=== PATIENT | female | born 2000 | race Caucasian/White ===

== ENCOUNTER 2021-10-03 13:12 | Emergency (ER) | payer OTHER, SELFPAY ==
[2021-10-03 13:20] VITALS: BP 115/96; PULSE 104; RESP 12; TEMP 36.4; O2SAT 100
--- NOTE | 2021-10-03 13:30 | ED.URI ---
HPI - URI/Sore Throat General Chief Complaint: Upper Respiratory Infection Stated Complaint: Sore throat, cough Time Seen by Provider: 10/03/21 13:47 Source: patient and RN notes reviewed Mode of arrival: ambulatory Limitations: no limitations History of Present Illness HPI Narrative: 21-year-old female presents with concern for 1 week history of sore throat on and off. Reports 2 days ago she began having fever, chills, cough, headache. Reports she is fully vaccinated for Covid. Reports she has been taking DayQuil and NyQuil without relief. She denies shortness of breath, loss of taste or smell. MD elicited complaint: cough and nasal congestion Related Data Allergies Allergy/AdvReac Type Severity Reaction Status Date / Time No Known Allergies Allergy Verified 08/01/21 13:25 Review of Systems Review of Systems: CONSTITUTIONAL: Reports malaise, chills, sweats, or fever. EYES: Denies visual changes, redness, or discharge. ENT: Reports rhinorrhea, congestion, sore throat. Denies sinus pain, otalgia CARDIOVASCULAR: Denies chest pain, palpitations, or edema. RESPIRATORY: Reports cough. Denies dyspnea. GASTROINTESTINAL: Denies abdominal pain, nausea, vomiting, diarrhea SKIN: Denies rash or itching. MUSCULOSKELETAL: Reports myalgia. NEUROLOGIC: Den reports headache. All systems reviewed & are unremarkable except as noted in HPI and below PMFSH Past Medical History Medical History No active medical problems Surgical History Surgical History [place] teeth removed Family History Family History Mother Depression Father Family history of type 2 diabetes mellitus Hypertension Grandparent History of blood clots Breast cancer Cerebrovascular accident Social History Social History Smoking status: Never smoker Second hand tobacco smoke exposure: No Alcohol intake: current Drinks per week: 5 Substance use: never Comments At time of signature, agree with nursing past medical, surgical, social and family history. There is no relevant family history pertinent to the presenting complaint Exam Narrative: GENERAL: Nontoxic-appearing, well-nourished, and in no acute distress. HEAD: Normocephalic EYES: PERRLA, conjunctivae clear ENT: Nares clear, clear discharge. Mucous membranes moist. TM pearly lowery with sharp light reflex bilaterally; no tragal tenderness. Oropharynx not erythematous without lesions. Tonsils not enlarged and without exudate, no drooling, no hoarseness, no trismus, uvula midline. NECK: Supple. No lymphadenopathy CHEST: Clear to auscultation, breath sounds equal. No wheezing, rhonchi, rales, or stridor. No respiratory distress, speaks in full sentences. HEART: Regular rate and rhythm. No murmur heard. SKIN: Warm, dry, no rash. NEURO: Alert and oriented x3. PSYCH: Normal mood and affect Course Course Emergency Course: Patient is aware of diagnosis, understands and agrees to treatment plan. Anticipatory guidance given. Patient agrees to follow-up as directed and is aware of reasons to seek care at the emergency department. Portions of this record may have been created with voice recognition software Level of Care: Express Care Visit Vital Signs Vital signs: Vital Signs Temperature 97.6 F 10/03/21 13:20 Pulse Rate 104 H 10/03/21 13:20 Respiratory Rate 12 10/03/21 13:20 Blood Pressure 115/96 H 10/03/21 13:20 Pulse Oximetry 100 10/03/21 13:20 Temperature 97.6 F 10/03/21 13:20 Pulse Rate 104 H 10/03/21 13:20 Respiratory Rate 12 10/03/21 13:20 Blood Pressure 115/96 H 10/03/21 13:20 Pulse Oximetry 100 10/03/21 13:20 Reviewed. MDM - URI/Sore Throat MDM Narrative Medical decision making narrative: Differential diagn
== END 2021-10-03 13:58 | disposition home or self-care (01) ==
PROVIDERS: Emergency Provider Nurse Practitioner; PCP Family Medicine
DX: U07.1 COVID-19 (principal)
CPT/HCPCS: 87426; 99213; C9803; G0463

== ENCOUNTER 2024-10-24 08:24 | Emergency (ER) | payer OTHER, SELFPAY ==
--- NOTE | ~2024-10-24 | CT_ITS ---
EXAMINATION: CT abdomen pelvis w con DATE: 10/24/2024 10:14 INDICATION: Right-sided abdominal pain TECHNIQUE: Computed tomography (CT) of the abdomen and pelvis was performed with 100 mL Omnipaque-350 intravenous contrast. Automated exposure control and iterative reconstruction technique were employe d. The dose-length product was 276.38 mGy-cm. COMPARISON: None FINDINGS: Lung bases are clear. Heart size is normal. No pericardial or pleural effusion. Liver, gallbladder, s pleen, pancreas, bilateral adrenal glands and kidneys are normal. Bowels are normal with no obstructi on. The appendix is not visualized. No pericecal inflammatory change to suggest acute appendicitis. B ladder, anteverted uterus and bilateral adnexa are unremarkable. Minimal amount of likely physiologic free fluid in the cul-de-sac. No abscess or free intraperineal gas. No pathologically enlarged abdom inal or pelvic lymphadenopathy. Bones are unremarkable. IMPRESSION: 1. No acute intra-abdominal/pelvic process. Reviewed, dictated and finalized at location A. EXAMINER
[2024-10-24 08:25] VITALS: BP 118/72; PULSE 82; RESP 16; TEMP 36.4; O2SAT 100
--- OUTSIDE RECORDS SUMMARY | 2024-10-24 08:25 | XMS_ITS | Clinical Summary ---
Author Organization [facility] [employer] Address [facility] [facility] [place] [address] Care Team Providers Care Nursing Techn Name Role Phone Unavailable Primary Care Provider Unavailabl e Source Comments [facility] [employer],non-owned Affiliates and Associated Physician Practices is amultiple site organization consisting of ambulatory clinics and hospital sitesin [place], [place], [place] and [place]. This disclosure is being madepursuant to the Care Everywhere program and may not contain all information available regarding this patient. Last updated 18.[facility] [employer] Immunizations Name Administration Dates Next Due TDAP (7yrs+) 02/03/2021 Social History Tobacco Use Types Packs/Day Years Used Date Smoking Tobacco: Never Assessed Sex and Gender Information Value Date Recorded Sex Assigned at Not on file Gender Identity Not on file Sexual Orientation Not on file Plan of Treatment Health Maintenance Due Date Last Done Comments PAP SMEAR 2000 HIV SCREENING 2013 HPV VACCINE (1 - 3-dose series) 2013 CHLAMYDIA/GONORRHEA SCREENING 2014 HEPATITIS C SCREENING 09/01/2016 HEPATITIS B VACCINE (1 of 3 - 19+ 3-dose series) 2017 COVID-19 VACCINE ( - 2023-2 5 season) 2024 11/22/2020, 10/25/2020 INFLUENZA VACCINE (#1) 2024 DEPRESSION SCREENING 09/30/2024 DTAP/TDAP/TD VACCINES (2 - T d or Tdap) 02/03/2031 02/03/2021 ZOSTER VACCINE (1 of 2) 2048 HIB VACCINE Aged Out No longer eligi ble based on patient's age to complete this topic MENINGOCOCCAL (Group B) VACCINE Aged Out No longer eligible b ased on patient's age to complete this topic MENINGOCOCCAL VACCINE Aged Out No hardy meg eligible based on patient's age to complete this topic PNEUMOCOCCAL VACCINE Aged Out No long er eligible based on patient's age to complete this topic
--- OUTSIDE RECORDS SUMMARY | 2024-10-24 08:25 | XMS_ITS ---
Care Plan - [facility] Created on: October 24, 2024 ZEINAB DIAZ : 2000 Sex: Female Author Organization [facility] Address [address] [place] [address] Phone Care Team Providers Care College Sports Coach Name Role Phone Unavailable Unavailable Unavailable
--- OUTSIDE RECORDS SUMMARY | 2024-10-24 08:25 | XMS_ITS | Referral Summary ---
Author Organization [facility] Address [facility] [place] [address] Care Team Providers Care Mail Carriers Supervisor Name Role Phone Unavailable Primary Care Provider Unavailabl e Source Comments [facility],non-owned Affiliates and Associated Physician Practices is amultiple site organization consisting of ambulatory clinics and hospital sitesin [place], [place], [place] and [place]. This disclosure is being madepursuant to the Care Everywhere program and may not contain all information available regarding this patient. Last updated 18.[facility] [employer] Immunizations Name Administration Dates Next Due TDAP (7yrs+) 02/03/2021 Social History Tobacco Use Types Packs/Day Years Used Date Smoking Tobacco: Never Assessed Sex and Gender Information Value Date Recorded Sex Assigned at Not on file Gender Identity Not on file Sexual Orientation Not on file Plan of Treatment Not on file
--- OUTSIDE RECORDS SUMMARY | 2024-10-24 08:25 | XMS_ITS | Clinical Summary ---
Author Organization [facility] Address [address] [place] [address] Phone Care Team Providers Care Saw Man Name Role Phone Unavailable Unavailable Unavailable Reason for Visit and Chief Complaint gynecologic annual exam - The Chief Complaint is: Annual Problems Includes: Problems addressed during this encounter and other active Problems All Visits Onset Date Resolved Date Provider Condition S tatus Dysmenorrhea 12/22/2015 OLIVIA OSORIO [facility]- A ctive Last Documented On 6 2:17PM ; [facility] Plan of Treatment - Clinical summary provided to patient - Last Documented On 12/31/2016 2:33PM ; [facility] Instructions to patient Instructions for patient : B reast Self Exam discussed Last Documented On 7 2:18PM ; [facility] Gardasil information given a nd series encouraged Series completed! Last Documented On 7 2:19PM ; [facility] Safe sex counseling Last Documented On 7 2:19PM ; [facility] Education and Decision Aids were provided during visit for: Patient Education: Daily bryant cium and vitamin D Last Documented On 7 2:18PM ; [facility] Patient Education: weight be aring exercise Last Documented On 7 2:18PM ; [facility] Assessments Includes: Assessments from this encounter Findings - NORMAL FEMALE EXAM - Last Documented On 12/31/2016 2:33PM ; [facility] Instructions Includes: Instructions from this encounter Instructions to patient Instructions for patient : B reast Self Exam discussed Last Documented On 7 2:18PM ; [facility] Gardasil information given a nd series encouraged Series completed! Last Documented On 7 2:19PM ; [facility] Safe sex counseling Last Documented On 7 2:19PM ; [facility] Education and Decision Aids were provided during visit for: Patient Education: Daily bryant cium and vitamin D Last Documented On 7 2:18PM ; [facility] Patient Education: weight be aring exercise Last Documented On 7 2:18PM ; [facility] Medical Equipment - Implanted Devices Includes: Current Devices No Medical Equipment Recorded Medications Includes: Medications discussed during this encounter and other current Medications New / Renewed during this visit OLIVIA COVINGTON on 12/31/2016 Aviane 0.1-20MG-MCG Oral Tablet Provider: OLIVIA Boone 90 day supply: 90 tablet, 3 refills Diagnosis: Dysmenorrhea, unspecified One tablet daily Pharmacy: [facility] [address], [address] - Last Documented On 8 6:58AM By OLIVIA COVINGTON ; [facility] Current Medications (continue as prescribed) Aviane 0.1-20MG-MCG Oral Tablet 02/04/2019 Provider: OLIVIA COVINGTON Diagnosis: One tablet daily Last Documented On 9 9:12AM By OLIVIA COVINGTON ; [facility] Medications Administered Includes: Administered Medications from this encounter No Administered Medications Recorded Vital Signs Includes: Vital Signs from this encounter Vital Name 12/31/2016 02:23P Blood Pressure Sitting L 100/60 BP Cuff Size Regular Height (in) 67 Weight (lb) 114 Body Mass Index (kg/m2) 17.9 BMI Percentile (percentile) 7 Body Surface Area (m2) 1.6 Last Documented: On 12/31/2016 2:25PM ; [facility] Results Includes: Results discussed during this encounter No Results Recorded For Specified Dates History of Present Illness Includes: History of Present Illness from this encounter NEWTON DIAZ is an 16 year old female. - Medication list reviewed - PRIMARY CARE PROVIDER : Dr Clay Social History Description Last Updated Non-smoker 12/31/2016 Last Documented On 7 2:33PM ; [facility] Not using alcohol 12/31/2016 Last Documented On 7 2:33PM ; [facility] Not using drugs 12/31/2016 Last Documented On 7 2:33PM ; [facility] Social history unchanged 12/31/2016 Last Documented On 7 2:33PM ; [facility] Smoking status : Never smoker 12/31/2016 Last Documented On 7 2:33PM ; [facility] Procedures and Surgical History Includes: Procedures from this encounter Procedures Code Diagnosis Performing Provider Service L ocation Service Date low fat diet Last Documented On 7 2:19PM ; [facility] Medical History Includes: Medical History addressed during this encounter Description Last Updated No recent change in medical history 11/2016 Last Documented On 7 2:33PM ; [facility] History of Gardasil 12/31/2016 Last Documented On 7 2:33PM ; [facility] LMP: 12/29/2016 12/31/2016 Last Documented On 7 2:33PM ; [facility] Not sexually active 12/31/2016 Last Documented On 7 2:33PM ; [facility] Contraception: avaine 12/31/2016 Last Documented On 7 2:33PM ; [facility] Family History Includes: Family History addressed during this encounter Description Last Updated Family history unchanged 12/31/2016 Last Documented On 7 2:33PM ; [facility] Family medical history was unknown 12/31 Last Documented On 7 2:33PM ; [facility] Review of Systems Includes: Review of Systems from this encounter Gastrointestinal: No pelvic pain. Genitourinary: No menorrhagia. No dysmenorrhea and no bleeding between periods. No vaginal discharge. Mental Status Includes: Mental Status from this encounter No Mental Status Recorded Functional Status Includes: Functional Status from this encounter No Functional Status Recorded Physical Exam Includes: Physical Exam from this encounter Allergies Includes: Active Allergies No Known Allergies Encounters Encounter Provider Location Date Check-In Time Check-Out Time Diagnosis [employer]ANITE [employer]TER[employer] INSTALLER EXAM [facility] [employer] 7 2:18PM 2:33PM Normal Female Exam Clinical Notes Includes: Clinical Notes from this encounter No Clinical Notes Recorded
--- OUTSIDE RECORDS SUMMARY | 2024-10-24 08:25 | XMS_ITS | Referral Summary ---
Author Organization [facility] [place] [address] Address [address] [place] [address] Care Team Providers Care Asphalt Mixing Machine Operator Name Role Phone Raza Aggarwal MD Primary Care Provider [phone] [phone] Encounters Date Type Department Care Team Description 10/16/2024 Telephone [facility] [address] [place] [address] Heavenly Carbone LPN 10/09/2024 11:01 AM DIRECTOR ONCOLOGY - 10/09/2024 11:59 PM DIRECTOR ONCOLOGY Hospital Encounter [facility] [address] [place] [phone] Screening for malignant neoplasm of cervix Discharge Disposition: Discharge to home or self care 10/09/2024 10:30 AM DIRECTOR ONCOLOGY Office Visit [facility] [address] [place] [address] Flor Stark DO Encounter for annual routine gynecological examination (Primary Dx); Screening for malignant neoplasm of cervix; Encounter for surveillance of contraceptive pills 09/01/2024 8:15 AM DIRECTOR ONCOLOGY Office Visit [facility] Primary Care at [address] [address] Raza Aggarwal MD Annual physical exam (Primary Dx) from Last 3 Months Allergies No known active allergies Medications levonorgestreL- ethinyl estrad (Vienva) 0.1-20 mg-mcg per tablet Take 1 tablet by mouth daily 28 tablet 12 5 Active levonorgestreL- ethinyl estrad (Vienva) 0.1-20 mg-mcg per tablet Take 1 tablet by mouth daily 28 tablet 12 4 10/09/19 25 Discontinu ed(Reorder ) Active Problems Problem Noted Date Diagnosed Date Annual physical exam 09/03/2023 Immunizations Name Administration Dates Next Due DTaP 09/21/2002, 0,03/10/1999,12/30,1998 Hep B, Adolescent or Pediatric 1999,1998,1998 Hib (HbOC) 05/07/2000, 9,1998,11/04 IPV 09/21/2002, 0,1998,11/04 Influenza, Quadrivalent, Spl it, Preservative Free, Intramuscular 06/29/2022 Influenza, Trivalent, IM (MDV) 07/05/2021 Influenza, Unspecified 07/09/2024,07/09/2023 MMR 05/27/2004,05/07/2000 Meningococcal MCV4P (Menactra) 04/26/2016 PPD TEST 04/25/2022 Tdap 02/03/2021,05/08/2013 Varicella 05/15/2010,02/05/2000 Social History Tobacco Use Types Packs/Day Years Used Date Smoking Tobacco: Never Cigarettes Smokeless Tobacco: Never Tobacco Cessation:Counseling Given: Not Answered PHQ-2 Answer Date Recorded PHQ-2 Total Score (If total score is 3 or more points, staff should administer the PHQ-9) 0 09/01/2024 Comments No Sex and Gender Information Value Date Recorded Sex Assigned at Not on file Legal Sex Female 12:37 PM DIRECTOR ONCOLOGY Gender Identity Not on file Sexual Orientation Not on file Occupation Industry Job Start Date Job End Date Not on file Not on file Not on file Not on file Last Filed Vital Signs Vital Sign Reading Time Taken Comments Blood Pressure 116/72 10/09/2024 10:14 AM DIRECTOR ONCOLOGY Pulse 88 09/01/2024 8:20 AM DIRECTOR ONCOLOGY Temperature 36.7 ??C (98.1 ??F) 09/01/2024 8:20 AM CS T Respiratory Rate 16 05/24/2022 10:21 AM CDT Oxygen Saturation 98% 09/01/2024 8:20 AM DIRECTOR ONCOLOGY Inhaled Oxygen Concentration - - Weight 70.8 kg (156 lb) 10/09/2024 10:14 AM DIRECTOR ONCOLOGY Height 167.6 cm (5' 6 ) 10/09/2024 10:14 AM DIRECTOR ONCOLOGY Body Mass Index 25.18 10/09/2024 10:14 AM DIRECTOR ONCOLOGY Plan of Treatment Not on file Procedures Procedure Name Priority Date/Time Associated Diagnosis Comments HIGH RISK HPV DNA DETECTION WITH GENOTYPING Routine 10/09/2024 11:33 AM DIRECTOR ONCOLOGY THINPREP PROCESSING (MOLECULAR COMPONENT) Routine 10/09/2024 11:01 AM DIRECTOR ONCOLOGY Screening for malignant neoplasm of cervix PAP WITH REFLEX TO HIGH RISK HPV Routine 10/09/2024 10:27 AM DIRECTOR ONCOLOGY Screening for malignant neoplasm of cervix from Last 3 Months Results * High Risk HPV DNA Detection with Genotyping (Molecular component) (10/09/2024 11:33 AM DIRECTOR ONCOLOGY) HPV HR 16 Not Detected Not Detected [facility] Comment:Testing performed by : [facility], [address] [place]., [address] HPV HR 18 Not Detected Not Detected [facility] Comment:Testing performed by : [facility], [address] [place]., [address] HPV HR Non 16/18 Not Detected Not Detected [facility] Comment: Interpretive Data Nucleic acid amplification for detection of high-risk Human Papilloma virus (HPV) is performed by the Carlos Eduardo Keyanna 6800 HPV test. ??This assay specifically detects HPV-16 and HPV-18 genotypes. ??The following HPV genotypes are detected as high-risk HPV: ?? HPV-31, 33, 35, ,39, 45, 51, 52, 56, 58, 59, 66, and 68. ??This assay has been approved by the United States Food and Drug Administration for detection of HPV in cervical specimens collected by a physician using an endocervical brush/spatula or cervical broom and placed in the ThinPrep Pap Test PreservCyt collection containers. ??The performance characteristics of this test have been verified by the [facility] laboratory. Correlate with separately reported cytology results, as applicable. Interpretive data last revised 23 Testing performed by: [facility], [address] [place]., [address] Endocervical 10/09/2024 11:3 3 AM DIRECTOR ONCOLOGY 10/16/2024 4:13 AM DIRECTOR ONCOLOGY Flor Stark DO LAB BODY FLUIDS AND STO OLS ORDERABLES Final Result [facility] [address] [employer] [place] [address] BJ * ThinPrep processing (Molecular component) (10/09/2024 11:01 AM DIRECTOR ONCOLOGY) ThinPrep processing (Molecular component) Specimen received for processing. [facility] Comment:Testing performed by : [facility], [address] [place]., [address] Endocervical 10/09/2024 11:0 1 AM DIRECTOR ONCOLOGY 10/12/2024 12:16 PM DIRECTOR ONCOLOGY Flor Stark DO LAB BODY FLUIDS AND STO OLS ORDERABLES Final Result [facility] [address] [employer] [place] [address] BJ * (ABNORMAL) Pap with reflex to High Risk HPV and Genotyping (Cytology Component) (10/09/2024 10:27 AM DIRECTOR ONCOLOGY) Thin prep (Pap test) 10/09/2024 10:27 AM DIRECTOR ONCOLOGY 10/09/2024 10:27 AM DIRECTOR ONCOLOGY Narrative PATHOLOGY CH - 10/14/2024 3:39 PM DIRECTOR ONCOLOGY [facility] Department of Pathology [address] [place] [address] Final Report with Addendum Note to Patients: This report may contain a detailed description of human tissue sent by a health care provider to the laboratory for pathologic evaluation. The content of this report is essential for diagnosis and may provide important critical findings. This information may be unfamiliar to patients to review without a medical professional present. It is advised that the patient review this report in the presence of a health care provider who can answer questions and explain the details. Patient Name: ??LINSEY DIAZ Address: ??[address] [place] [address] [place], ?? [place], [place] ??[address] Gender: ??F : ??2000 (Age: 24) Service: ?? Location: ?? Hospital #: ??[id number] Patient Type: ??[facility] SPECIMEN Taken: ??10/09/2024 Received: ??10/09/2024 Accessioned:: ??10/12/2024 Reported: ??10/14/2024 Physician(s): Luis Santos D.O. Diagnosis: SOURCE OF SPECIMEN ? Imaged Thinprep Pap Test w/ Reflex HPV - Field Supervisor Cytologic Material: STATEMENT OF ADEQUACY ?- Specimen satisfactory for interpretation; endocervical/transformation zone component absent or ?insufficient ? GENERAL CATEGORIZATION: ?- Epithelial cell abnormality ? INTERPRETATION: ?- Atypical squamous cells of undetermined significance; ?- High risk HPV test pending -- addendum to follow ? ALLIE Trejo(ASCP)Ayanna Wolfe M.D. Report Electronically Reviewed and Signed Out By ??Ayanna Haji M.D. ??10/14/2024 15:39:13Addenda: HPV Test Interpretation (Normal-Negative for High Risk HPV) HPV HR 16- Not detected HPV HR 18-Not detected HPV HR non 16/18- Not detected Interpretive Data Nucleic acid amplification for detection of high-risk Human Papilloma virus (HPV) is performed by the Carlos Eduardo Keyanna 6800 HPV test. This assay specifically detects HPV- 16 and HPV-18 genotypes. The following HPV genotypes are detected as high-risk HPV: HPV-31, 33, 35, 39, 45, 51, 52, 56, 58, 59, 66, and 68. This assay has been approved by the [place] Food and Drug Administration for detection of HPV in cervical specimens collected by a physician using an endocervical brush/spatula or cervical broom and placed in the ThinPrep Pap Test PreservCyt collection containers. The performance characteristics of this test have been verified by the [facility] laboratory. Correlate with reported cytology results, as applicable. Interpretive data last revised 23 ALLIE Trejo(ASCP)Report Electronically Reviewed and Signed Out By ??ALLIE Trejo(ASCP) ??10/16/2024 10:57:17 ?? Specimen(s) Received: A: Imaged Thinprep Pap Test w/ Reflex HPV - Field Supervisor Cytologic Material Clinical History: Last Menstrual Period: 09/13/24 The Pap test is a screening test used to aid in the detection of cervical cancer and its precursors. ??It should not be the sole means by which malignant and premalignant lesions are diagnosed. ??Both false negative and false positive results may occur. ?? It also has poor sensitivity for the detection of endometrial lesions and should not be used to evaluate suspected endometrial abnormalities. ??For these reasons it is most important to obtain Pap tests at regular intervals. The performance characteristics of some immunohistochemical stains, fluorescence in-situ hybridization tests and immunophenotyping by flow cytometry cited in this report (if any) were determined by the Surgical Pathology Department at [facility] as part of an ongoing dairy quality assurance officer program and in compliance with federally mandated regulations drawn from the Clinical Laboratory Improvement Act of 1988 (CLIA '88). ??Some of these tests rely on the use of analyte specific reagents and are subject to specific labeling requirements by the US Food and Drug Administration. ??Such diagnostic tests may only be performed in a facility that is certified by the Department of Health and Human Services as a high complexity laboratory under CLIA '88. The FDA has determined that such clearance or approval is not necessary. ??This test is used for clinical purposes. ??It should not be regarded as investigational or for research. ??Nevertheless, federal rules concerning the medical use of analyte specific reagents require that the following disclaimer be attached to the report: This test was developed and its performance characteristics determined by the Surgical Pathology Department [facility]. ??It has not been cleared or approved by the U. S. Food and Drug Administration. Flor Stark DO LAB CYTOLOGY ORDERABLES Final Result PATHOLOGY [address] [place] [address] from Last 3 Months Insurance [facility] * Guarantor: LINSEY DIAZ Account Type Relation to Patient Date of Phone Billing Address Personal/Family 2000 [address] [place] [address] Care Teams Asphalt Mixing Machine Operator Relationship Specialty Start Date End Date [place] [address] PCP - General Family Medicine 07/31/21
--- OUTSIDE RECORDS SUMMARY | 2024-10-24 08:25 | XMS_ITS | Patient Health Summary ---
Author Organization [facility] Address [address] [place] [address] Care Team Providers Care Cna Name Role Phone Unavailable Primary Care Provider Unavailabl e Note from [facility],non-owned Affiliates and Associated Physician Practices is amultiple site organization consisting of ambulatory clinics and hospital sitesin [place], [place], [place] and [place]. This disclosure is being madepursuant to the Care Everywhere program and may not contain all information available regarding this patient. Last updated 18.[facility] Immunizations * TDAP (7yrs+)(Given 02/03/2021) Social History Tobacco Use Types Packs/Day Years Used Date Smoking Tobacco: Never Assessed Sex and Gender Information Value Date Recorded Sex Assigned at Not on file Gender Identity Not on file Sexual Orientation Not on file
--- OUTSIDE RECORDS SUMMARY | 2024-10-24 08:25 | XMS_ITS | Clinical Summary ---
Author Organization [facility] [place] [address] Address [facility] [place] [address] Care Team Providers Care Getter Operator Name Role Phone Raza Aggarwal MD Primary Care Provider [phone] [phone] Allergies No known active allergies Medications levonorgestreL- ethinyl estrad (Vienva) 0.1-20 mg-mcg per tablet Take 1 tablet by mouth daily 28 tablet 12 5 Active levonorgestreL- ethinyl estrad (Vienva) 0.1-20 mg-mcg per tablet Take 1 tablet by mouth daily 28 tablet 12 4 10/09/19 25 Discontinu ed(Reorder ) Active Problems Problem Noted Date Diagnosed Date Annual physical exam 09/03/2023 Encounters Date Type Department Care Team Description 10/16/2024 Telephone [facility] [address] [place] [phone] Heavenly Carbone LPN 10/09/2024 11:01 AM CONSULTING SENIOR PRACTICE DIRECTOR - 10/09/2024 11:59 PM CONSULTING SENIOR PRACTICE DIRECTOR Hospital Encounter [facility] [address] [place] [address] Screening for malignant neoplasm of cervix Discharge Disposition: Discharge to home or self care 10/09/2024 10:30 AM CONSULTING SENIOR PRACTICE DIRECTOR Office Visit [facility] [address] [place] [phone] Flor Stark, Encounter for annual routine gynecological examination (Primary Dx); Screening for malignant neoplasm of cervix; Encounter for surveillance of contraceptive pills 09/01/2024 8:15 AM CONSULTING SENIOR PRACTICE DIRECTOR Office Visit [facility] Primary Care at [address] [address] Raza Aggarwal MD Annual physical exam (Primary Dx) from Last 3 Months Immunizations Name Administration Dates Next Due DTaP 09/21/2002, 0,03/10/1999,12/30,1998 Hep B, Adolescent or Pediatric 1999,1998,1998 Hib (HbOC) 05/07/2000, 9,1998,11/04 IPV 09/21/2002, 0,1998,11/04 Influenza, Quadrivalent, Spl it, Preservative Free, Intramuscular 06/29/2022 Influenza, Trivalent, IM (MDV) 07/05/2021 Influenza, Unspecified 07/09/2024,07/09/2023 MMR 05/27/2004,05/07/2000 Meningococcal MCV4P (Menactra) 04/26/2016 PPD TEST 04/25/2022 Tdap 02/03/2021,05/08/2013 Varicella 05/15/2010,02/05/2000 Surgical History Surgery Date Site/Laterality Comments NO PAST SURGERIES Medical History Medical History Date Comments No pertinent past medical history Anxiety Family History Medical History Relation Name Comments Diabetes Father Rubens Diaz Relation Name Status Comments Father Rubens Diaz Alive Mother Alive Social History Tobacco Use Types Packs/Day Years Used Date Smoking Tobacco: Never Cigarettes Smokeless Tobacco: Never Tobacco Cessation:Counseling Given: Not Answered PHQ-2 Answer Date Recorded PHQ-2 Total Score (If total score is 3 or more points, staff should administer the PHQ-9) 0 09/01/2024 Comments No Sex and Gender Information Value Date Recorded Sex Assigned at Not on file Legal Sex Female 12:37 PM CONSULTING SENIOR PRACTICE DIRECTOR Gender Identity Not on file Sexual Orientation Not on file Occupation Industry Job Start Date Job End Date Not on file Not on file Not on file Not on file Obstetrics History Para Term AB IAB SAB Ectopic Multiple Livin g Live Births 0 0 0 0 0 0 0 0 0 0 0 Last Filed Vital Signs Vital Sign Reading Time Taken Comments Blood Pressure 116/72 10/09/2024 10:14 AM CONSULTING SENIOR PRACTICE DIRECTOR Pulse 88 09/01/2024 8:20 AM CONSULTING SENIOR PRACTICE DIRECTOR Temperature 36.7 ??C (98.1 ??F) 09/01/2024 8:20 AM CS T Respiratory Rate 16 05/24/2022 10:21 AM CDT Oxygen Saturation 98% 09/01/2024 8:20 AM CONSULTING SENIOR PRACTICE DIRECTOR Inhaled Oxygen Concentration - - Weight 70.8 kg (156 lb) 10/09/2024 10:14 AM CONSULTING SENIOR PRACTICE DIRECTOR Height 167.6 cm (5' 6 ) 10/09/2024 10:14 AM CONSULTING SENIOR PRACTICE DIRECTOR Body Mass Index 25.18 10/09/2024 10:14 AM CONSULTING SENIOR PRACTICE DIRECTOR Plan of Treatment Health Maintenance Due Date Last Done Comments Hepatitis C Screening 2000 HPV Vaccines (1 - 3-dose series) 2013 Covid-19 Vaccine ( season) 2024 11/22/2020, 10/25/2020 Depression Screening 09/01/2025 09/01/2024, 09/03/2023, 08/28/2022, Additional history exists Cervical Cancer Screening 10/09/20252024, 10/09/2024, 10/03/2023, Additional history exists Regular Well Visit/Exam 18-64 10/09/2025 10/09/2024, 09/01/2024, 10/03/2023, Additional history exists DTaP/Tdap/Td Vaccine (8 - Td or Tdap) 02/03/2031 02/03/2021, 05/08/2013, 09/21/2002, Additional history exists Varicella Vaccines Completed 05/15/2010, 02/05/2000 Influenza Vaccine Completed 07/09/2024, , 06/29/2022, Additional history exists Pneumococcal vaccine <65 Aged Out No longer eligible based on patient's age to complete this topic Procedures Procedure Name Priority Date/Time Associated Diagnosis Comments HIGH RISK HPV DNA DETECTION WITH GENOTYPING Routine 10/09/2024 11:33 AM CONSULTING SENIOR PRACTICE DIRECTOR THINPREP PROCESSING (MOLECULAR COMPONENT) Routine 10/09/2024 11:01 AM CONSULTING SENIOR PRACTICE DIRECTOR Screening for malignant neoplasm of cervix PAP WITH REFLEX TO HIGH RISK HPV Routine 10/09/2024 10:27 AM CONSULTING SENIOR PRACTICE DIRECTOR Screening for malignant neoplasm of cervix from Last 3 Months Results * High Risk HPV DNA Detection with Genotyping (Molecular component) (10/09/2024 11:33 AM CONSULTING SENIOR PRACTICE DIRECTOR) HPV HR 16 Not Detected Not Detected [facility] Comment:Testing performed by : [facility], [address] [place]., [address] HPV HR 18 Not Detected Not Detected [facility] Comment:Testing performed by : [facility], [address] [place]., [address] HPV HR Non 16/18 Not Detected Not [...] this test have been verified by the [facility] Infectious Disease laboratory. Correlate with separately reported cytology results, as applicable. Interpretive data last revised 23 Testing performed by: [facility], [address] [place]., [address] Endocervical 10/09/2024 11:3 3 AM CONSULTING SENIOR PRACTICE DIRECTOR 10/16/2024 4:13 AM CONSULTING SENIOR PRACTICE DIRECTOR Flor Stark DO LAB BODY FLUIDS AND STO OLS ORDERABLES Final Result Performing Organization Address City/State/[facility] Co de Phone Number [facility] ZAMAN [phone] Department [place] [address] BJ * ThinPrep processing (Molecular component) (10/09/2024 11:01 AM CONSULTING SENIOR PRACTICE DIRECTOR) ThinPrep processing (Molecular component) Specimen received for processing. [facility] Comment:Testing performed by : [facility], [address] [place]., [address] Endocervical 10/09/2024 11:0 1 AM CONSULTING SENIOR PRACTICE DIRECTOR 10/12/2024 12:16 PM CONSULTING SENIOR PRACTICE DIRECTOR Flor Stark DO LAB BODY FLUIDS AND STO OLS ORDERABLES Final Result Performing Organization Address [facility] Co de Phone Number [facility] ZAMAN [address] Department [place] [address] BJ * (ABNORMAL) Pap with reflex to High Risk HPV and Genotyping (Cytology Component) (10/09/2024 10:27 AM CONSULTING SENIOR PRACTICE DIRECTOR) Thin prep (Pap test) 10/09/2024 10:27 AM CONSULTING SENIOR PRACTICE DIRECTOR 10/09/2024 10:27 AM CONSULTING SENIOR PRACTICE DIRECTOR Narrative PATHOLOGY - 10/14/2024 3:39 PM CONSULTING SENIOR PRACTICE DIRECTOR [facility] Department of Pathology [address] [place] [id number] Final Report with Addendum Note to Patients: [...] the details. Patient Name: ??LINSEY DIAZ Address: ??[address] [place] [address], ?? [place], [place] ??[address] Gender: ??F : ??2000 (Age: 24) Service: ?? Location: ?? Hospital #: ??[id number] Patient Type: ??[facility] SPECIMEN Taken: ??10/09/2024 Received: ??10/09/2024 Accessioned:: ??10/12/2024 Reported: ??10/14/2024 Physician(s): Luis Santos D.O. Diagnosis: SOURCE OF SPECIMEN ? Imaged Thinprep Pap Test w/ Reflex HPV - Clinical Immunologist Cytologic Material: STATEMENT OF ADEQUACY ?- Specimen [...] this test have been verified by the [facility] Infectious Disease laboratory. Correlate with reported cytology results, as applicable. Interpretive data last revised 23 ALLIE Trejo(ASCP)Report Electronically Reviewed and Signed Out By ??ALLIE Trejo(ASCP) ??10/16/2024 10:57:17 ?? Specimen(s) Received: A: Imaged Thinprep Pap Test w/ Reflex HPV - Clinical Immunologist Cytologic Material Clinical History: Last Menstrual Period: [...] determined by the Surgical Pathology Department at [facility] as part of an ongoing quality internship program and in compliance with federally mandated [...] characteristics determined by the Surgical Pathology Department [facility]. ??It has not been cleared or approved by the U. S. Food and Drug Administration. Flor Stark DO LAB CYTOLOGY ORDERABLES Final Result PATHOLOGY [address] [place] [address] from Last 3 [place] [address] [employer] Address: [facility] [id number] [place] [address] [place] [address] [place] [address] Care Teams Getter Operator Relationship Specialty Start Date End Date R[place] [address] PCP - General Family Medicine 07/31/21
--- OUTSIDE RECORDS SUMMARY | 2024-10-24 08:26 | XMS_ITS ---
Author Organization [facility] Address [address] [place] [address] Phone Care Team Providers Care Top And Trim Worker Name Role Phone Unavailable Unavailable Unavailable Problems Includes: Active, inactive, and resolved Problems All Visits Onset Date Resolved Date Provider Condition S tatus Dysmenorrhea 12/22/2015 OLIVIA Wise OSORIO NP-BC A ctive Last Documented On 6 2:17PM ; [facility] Plan of Treatment Findings Encounter Date Ordered Clinical summary pro vided to patient DIRECT OF REAL ESTATE EXAM with OLIVIA OSORIO WHNP-BC 02/04/2019 Last Documented On 9 9:02AM ; [facility] Ordered Clinical summary pro vided to patient ANNUAL WELL WOMEN EXAM with OLIVIA A OSORIO WHNP-BC 02/03/2018 Last Documented On 8 3:17PM ; [facility] Ordered Clinical summary pro vided to patient DIRECT OF REAL ESTATE EXAM with OLIVIA Wise OSORIO WHNP-BC 12/31/2016 Last Documented On 7 2:33PM ; [facility] Ordered Clinical summary pro vided to patient 3 MONTH CHECK with OLIVIA Wise OSORIO WHNP-BC 03/26/2016 Last Documented On 6 10:54AM ; [facility] ER/pain precautions reviewed NEW DIRECT OF REAL ESTATE EXAM with Paolo Wise JO WHNP-BC 12/22/2015 Last Documented On 6 2:46PM ; [facility] Ordered Clinical summary pro vided to patient NEW DIRECT OF REAL ESTATE EXAM with OLIVIA Wise OSORIO WHNP-BC 12/22/2015 Last Documented On 6 2:46PM ; [facility] Instructions to patient Instructions for patient : B reast Self Exam discussed Last Documented On 9 8:49AM ; [facility] Gardasil information given a nd series encouraged Series completed! Last Documented On 9 8:50AM ; [facility] Safe sex counseling Last Documented On 9 8:50AM ; [facility] Instructions for patient : B reast Self Exam discussed Last Documented On 8 3:00PM ; [facility] Gardasil information given a nd series encouraged Series completed! Last Documented On 8 3:01PM ; [facility] Safe sex counseling Last Documented On 8 3:01PM ; [facility] Instructions for patient : B reast Self Exam discussed Last Documented On 7 2:18PM ; [facility] Gardasil information given a nd series encouraged Series completed! Last Documented On 7 2:19PM ; [facility] Safe sex counseling Last Documented On 7 2:19PM ; [facility] Safe sex counseling Last Documented On 6 10:39AM ; [facility] Instructions for patient : B reast Self Exam discussed Last Documented On 6 2:17PM ; [facility] Instructions for patient : p atient is to keep a menstrual diary to help with further evaluation and treatment Last Documented On 6 2:17PM ; [facility] Instructions for patient ER if bleeding through reg. sized pad/tampon < 1 hour Last Documented On 6 2:17PM ; [facility] Gardasil information given a nd series encouraged Last Documented On 6 2:17PM ; [facility] Safe sex counseling Last Documented On 6 2:17PM ; [facility] Education and Decision Aids were provided during visit for: Patient Education: Daily bryant cium and vitamin D Last Documented On 9 8:49AM ; [facility] Patient Education: weight be aring exercise Last Documented On 9 8:49AM ; [facility] Patient Education: Daily bryant cium and vitamin D Last Documented On 8 3:00PM ; [facility] Patient Education: weight be aring exercise Last Documented On 8 3:00PM ; [facility] Patient Education: Daily bryant cium and vitamin D Last Documented On 7 2:18PM ; [facility] Patient Education: weight be aring exercise Last Documented On 7 2:18PM ; [facility] Patient Education: Daily bryant cium and vitamin D Last Documented On 6 2:17PM ; [facility] control consent review ed and signed Last Documented On 6 2:17PM ; [facility] Assessments Includes: Assessments for all patient encounters Findings Encounter Date NORMAL FEMALE EXAM DIRECT OF REAL ESTATE EXAM with OLIVIA Garcia [facility]- 02/04/2019 Last Documented On 9 9:02AM ; [facility] NORMAL FEMALE EXAM ANNUAL WELL WOMEN EXAM with Paolo OSORIO [facility]- 02/03/2018 Last Documented On 8 3:17PM ; [facility] NORMAL FEMALE EXAM DIRECT OF REAL ESTATE EXAM with OLIVIA Garcia [facility]- 12/31/2016 Last Documented On 7 2:33PM ; [facility] Instructions Includes: Instructions for all patient encounters Instructions to patient Instructions for patient : B reast Self Exam discussed Last Documented On 9 8:49AM ; [facility] Gardasil information given a nd series encouraged Series completed! Last Documented On 9 8:50AM ; [facility] Safe sex counseling Last Documented On 9 8:50AM ; [facility] Instructions for patient : B reast Self Exam discussed Last Documented On 8 3:00PM ; [facility] Gardasil information given a nd series encouraged Series completed! Last Documented On 8 3:01PM ; [facility] Safe sex counseling Last Documented On 8 3:01PM ; [facility] Instructions for patient : B reast Self Exam discussed Last Documented On 7 2:18PM ; [facility] Gardasil information given a nd series encouraged Series completed! Last Documented On 7 2:19PM ; [facility] Safe sex counseling Last Documented On 7 2:19PM ; [facility] Safe sex counseling Last Documented On 6 10:39AM ; [facility] Instructions for patient : B reast Self Exam discussed Last Documented On 6 2:17PM ; [facility] Instructions for patient : p atient is to keep a menstrual diary to help with further evaluation and treatment Last Documented On 6 2:17PM ; [facility] Instructions for patient ER if bleeding through reg. sized pad/tampon < 1 hour Last Documented On 6 2:17PM ; [facility] Gardasil information given a nd series encouraged Last Documented On 6 2:17PM ; [facility] Safe sex counseling Last Documented On 6 2:17PM ; [facility] Education and Decision Aids were provided during visit for: Patient Education: Daily bryant cium and vitamin D Last Documented On 9 8:49AM ; [facility] Patient Education: weight be aring exercise Last Documented On 9 8:49AM ; [facility] Patient Education: Daily bryant cium and vitamin D Last Documented On 8 3:00PM ; [facility] Patient Education: weight be aring exercise Last Documented On 8 3:00PM ; [facility] Patient Education: Daily bryant cium and vitamin D Last Documented On 7 2:18PM ; [facility] Patient Education: weight be aring exercise Last Documented On 7 2:18PM ; [facility] Patient Education: Daily bryant cium and vitamin D Last Documented On 6 2:17PM ; [facility] control consent review ed and signed Last Documented On 6 2:17PM ; [facility] Medical Equipment - Implanted Devices Includes: Current and historical Devices No Medical Equipment Recorded Medications Includes: Current and historical Medications Current Medications (continue as prescribed) Aviane 0.1-20MG-MCG Oral Tablet 02/04/2019 Provider: OLIVIA COVINGTON Diagnosis: One tablet daily Last Documented On 9 9:12AM By OLIVIA COVINGTON ; [facility] Past Medications on file Aviane 0.1-20MG-MCG Oral Tablet 12/17/2018 - 02/04/2019 Provider: OLIVIA TRINH NP-BC Diagnosis: One tablet daily Last Documented On 9 9:01AM By OLIVIA COVINGTON ; [facility] Aviane 0.1-20MG-MCG Oral Tablet 02/03/2018 - 12/17/2018 Provider: OLIVIA TRINH NP-BC Diagnosis: One tablet daily Last Documented On 9 11:26AM By OLIVIA COVINGTON ; [facility] Aviane 0.1-20MG-MCG Oral Tablet 01/07/2018 - 02/03/2018 Provider: OLIVIA TRINH RETAIL MERCHANDISER TECHNICIAN-BC Diagnosis: One tablet daily-no further refills until appt. ! Last Documented On 8 3:17PM By OLIVIA COVINGTON ; [facility] Aviane 0.1-20MG-MCG Oral Tablet 12/06/2017 - 01/07/2018 Provider: OLIVIA TRINH RETAIL MERCHANDISER TECHNICIAN-BC Diagnosis: One tablet daily-no further refills until appt. ! Last Documented On 8 3:07PM By OLIVIA COVINGTON ; [facility] Aviane 0.1-20MG-MCG Oral Tablet 12/31/2016 - 12/06/2017 Provider: OLIVIA DUPREEBC Diagnosis: Dysmenorrhea, unspecified One tablet daily Last Documented On 8 6:58AM By OLIVIA COVINGTON ; [facility] Aviane 0.1-20 MG-MCG Tablet 06/28/2016 - 12/31/2016 Provider: LORETO PALOMO RN [facility] Diagnosis: Dysmenorrhea, unspecified One tablet daily Last Documented On 7 2:32PM By OLIVIA COVINGTON ; [facility] Aviane 0.1-20 MG-MCG Tablet 03/26/2016 - 06/28/2016 Provider: OLIVIA DUPREEBC Diagnosis: Dysmenorrhea, unspecified One tablet daily Last Documented On 6 10:22AM By LORETO PALOMO FRIEDA-BC ; [facility] Aviane 0.1-20 MG-MCG Tablet 12/22/2015 - 03/26/2016 Provider: OLIVIA COVINGTON Diagnosis: Dysmenorrhea, unspecified One tablet daily Last Documented On 6 10:45AM By OLIVIA COVINGTON ; [facility] Aviane 0.1-20 MG-MCG Tablet 12/22/2015 - 12/22/2015 Provider: OLIVIA COVINGTON Diagnosis: Dysmenorrhea, unspecified One tablet daily Last Documented On 6 2:44PM By OLIVIA COVINGTON ; [facility] Medications Administered Includes: Administered Medications in patient's chart Medications Administered Diagnosis Date Pro vider Gardasil IM SUSP Encounter for immunization 09/25/2016 LORETO PALOMO RN [facility] 3rd Gardasil left deltoid, pt tolerated well/dp Last Documented On 6 1:09PM By CYNDIE OROSCO MA ; [facility] Gardasil IM SUSP Encounter for immunization 05/25/2016 OLIVIA DUPREE 2nd Gardasil admin 0.5mL right deltoid, pt tolerated well Last Documented On 6 2:17PM By CYNDIE OROSCO MA ; [facility] Gardasil IM SUSP Encounter for immunization 03/26/2016 OLIVIA OSORIO [facility] Last Documented On 6 10:53AM By GRACY ROGERS ; [facility] Results Includes: Results from 10/24/2023 through 10/24/2024 No Results Recorded For Specified Dates History of Present Illness History of Present Illness not supported for this document type No History of Present Illness Recorded Social History Description Last Updated Cigarette smoking 0 pack(s)/day 02/05/20 19 Last Documented On 9 9:02AM ; [facility] In monogamous relationship 02/04/2019 Last Documented On 9 9:02AM ; [facility] Sexually active with 1 partners in the l ast year 02/04/2019 Last Documented On 9 9:02AM ; [facility] Social history unchanged 02/04/2019 Last Documented On 9 9:02AM ; [facility] Smoking status : Never smoker 02/04/2019 Last Documented On 9 9:02AM ; [facility] Medical History Includes: Medical History in patient's chart Description Last Updated No recent change in medical history 04/2019 Last Documented On 9 9:02AM ; [facility] LMP: 01/23/2019 02/04/2019 Last Documented On 9 9:02AM ; [facility] Sexually active 02/04/2019 Last Documented On 9 9:02AM ; [facility] Contraception: avaine 02/04/2019 Last Documented On 9 9:02AM ; [facility] History of Gardasil 12/31/2016 Last Documented On 7 2:33PM ; [facility] Family History Includes: Family History in patient's chart Description Last Updated Family history unchanged 02/04/2019 Last Documented On 9 9:02AM ; [facility] Paternal history of diabetes mellitus fa ther 02/04/2019 Last Documented On 9 9:02AM ; [facility] Family medical history was unknown 12/31 Last Documented On 7 2:33PM ; [facility] Review of Systems Review of Systems not supported for this document type No Review of Systems Recorded Mental Status No Mental Status Recorded Functional Status No Functional Status Recorded Physical Exam Physical Exam not supported for this document type No Physical Exam Recorded Allergies Includes: Active, inactive, and resolved Allergies No Known Allergies Clinical Notes Includes: Signed Clinical Notes starting from 10/19/2022 No Clinical Notes Recorded
--- OUTSIDE RECORDS SUMMARY | 2024-10-24 08:26 | XMS_ITS | Clinical Summary ---
Author Organization [facility] Address [address] [place] [address] Phone Care Team Providers Care Transit Specialist Name Role Phone Unavailable Unavailable Unavailable Reason for Visit and Chief Complaint gynecologic annual exam - The Chief Complaint is: Annual-declines std testing same partner Problems Includes: Problems addressed during this encounter and other active Problems All Visits Onset Date Resolved Date Provider Condition S tatus Dysmenorrhea 12/22/2015 OLIVIA OSORIO [facility]- A ctive Last Documented On 6 2:17PM ; [facility] Plan of Treatment - Clinical summary provided to patient - Last Documented On 02/04/2019 9:02AM ; [facility] Instructions to patient Instructions for patient : B reast Self Exam discussed Last Documented On 9 8:49AM ; [facility] Gardasil information given a nd series encouraged Series completed! Last Documented On 9 8:50AM ; [facility] Safe sex counseling Last Documented On 9 8:50AM ; [facility] Education and Decision Aids were provided during visit for: Patient Education: Daily bryant cium and vitamin D Last Documented On 9 8:49AM ; [facility] Patient Education: weight be aring exercise Last Documented On 9 8:49AM ; [facility] Assessments Includes: Assessments from this encounter Findings - NORMAL FEMALE EXAM - Last Documented On 02/04/2019 9:02AM ; [facility] Instructions Includes: Instructions from this encounter Instructions to patient Instructions for patient : B reast Self Exam discussed Last Documented On 9 8:49AM ; [facility] Gardasil information given a nd series encouraged Series completed! Last Documented On 9 8:50AM ; [facility] Safe sex counseling Last Documented On 9 8:50AM ; [facility] Education and Decision Aids were provided during visit for: Patient Education: Daily bryant cium and vitamin D Last Documented On 9 8:49AM ; [facility] Patient Education: weight be aring exercise Last Documented On 9 8:49AM ; [facility] Medical Equipment - Implanted Devices Includes: Current Devices No Medical Equipment Recorded Medications Includes: Medications discussed during this encounter and other current Medications New / Renewed during this visit OLIVIA COVINGTON on 02/04/2019 Aviane 0.1-20MG-MCG Oral Tablet Provider: OLIVIA Boone 90 day supply: 90 tablet, 3 refills Diagnosis: One tablet daily Pharmacy: [facility] Pharmacy) [address] Last Documented On 9 9:12AM By OLIVIA COVINGTON ; [facility] Medications Administered Includes: Administered Medications from this encounter No Administered Medications Recorded Vital Signs Includes: Vital Signs from this encounter Vital Name 02/04/2019 08:53A 02/04/2019 08: 51A Blood Pressure Sitting L 118/78 BP Cuff Size Regular Height (in) 67 Weight (lb) 126 Body Mass Index (kg/m2) 19.7 Body Surface Area (m2) 1.7 Last Documented: On 02/04/2019 8:53AM ; [facility] On 02/04/2019 8:52AM ; [facility] Results Includes: Results discussed during this encounter No Results Recorded For Specified Dates History of Present Illness Includes: History of Present Illness from this encounter NEWTON DIAZ is a 18 year old female. - Medication list reviewed - PRIMARY CARE PROVIDER : Dr Rowe Social History Description Last Updated Cigarette smoking 0 pack(s)/day 02/05/20 19 Last Documented On 9 9:02AM ; [facility] In monogamous relationship 02/04/2019 Last Documented On 9 9:02AM ; [facility] Sexually active with 1 partners in the l ast year 02/04/2019 Last Documented On 9 9:02AM ; [facility] Social history unchanged 02/04/2019 Last Documented On 9 9:02AM ; [facility] Smoking status : Never smoker 02/04/2019 Last Documented On 9 9:02AM ; [facility] Procedures and Surgical History Includes: Procedures from this encounter Procedures Code Diagnosis Performing Provider Service L ocation Service Date low fat diet Last Documented On 9 8:50AM ; [facility] Chlamydia trachomatis culture was perfor med Last Documented On 9 8:50AM ; [facility] Neisseria gonorrhea culture was performe d Last Documented On 9 8:50AM ; [facility] Cervical Pap Smear performed [id number] Last Documented On 9 8:50AM ; [facility] Medical History Includes: Medical History addressed during this encounter Description Last Updated No recent change in medical history 04/2019 Last Documented On 9 9:02AM ; [facility] LMP: 01/23/2019 02/04/2019 Last Documented On 9 9:02AM ; [facility] Sexually active 02/04/2019 Last Documented On 9 9:02AM ; [facility] Contraception: avaine 02/04/2019 Last Documented On 9 9:02AM ; [facility] History of Gardasil 12/31/2016 Last Documented On 9 8:46AM ; [facility] Family History Includes: Family History addressed during this encounter Description Last Updated Family history unchanged 02/04/2019 Last Documented On 9 9:02AM ; [facility] Paternal history of diabetes mellitus fa ther 02/04/2019 Last Documented On 9 9:02AM ; [facility] Review of Systems Includes: Review of Systems [...] Location Date Check-In Time Check-Out Time Diagnosis 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
--- OUTSIDE RECORDS SUMMARY | 2024-10-24 08:26 | XMS_ITS | Clinical Summary ---
Author Organization [facility] Address [address] [place] [address] Phone Care Team Providers Care Value Stream Coach Name Role Phone Unavailable Unavailable Unavailable Reason for Visit and Chief Complaint gynecologic annual exam - The Chief Complaint is: Annual-declines std testing Problems Includes: Problems addressed during this encounter and other active Problems All Visits Onset Date Resolved Date Provider Condition S tatus Dysmenorrhea 12/22/2015 OLIVIA OSORIO [facility]- A ctive Last Documented On 6 2:17PM ; [facility] Plan of Treatment - Clinical summary provided to patient - Last Documented On 02/03/2018 3:17PM ; [facility] Instructions to patient Instructions for patient : B reast Self Exam discussed Last Documented On 8 3:00PM ; [facility] Gardasil information given a nd series encouraged Series completed! Last Documented On 8 3:01PM ; [facility] Safe sex counseling Last Documented On 8 3:01PM ; [facility] Education and Decision Aids were provided during visit for: Patient Education: Daily bryant cium and vitamin D Last Documented On 8 3:00PM ; [facility] Patient Education: weight be aring exercise Last Documented On 8 3:00PM ; [facility] Assessments Includes: Assessments from this encounter Findings - NORMAL FEMALE EXAM - Last Documented On 02/03/2018 3:17PM ; [facility] Instructions Includes: Instructions from this encounter Instructions to patient Instructions for patient : B reast Self Exam discussed Last Documented On 8 3:00PM ; [facility] Gardasil information given a nd series encouraged Series completed! Last Documented On 8 3:01PM ; [facility] Safe sex counseling Last Documented On 8 3:01PM ; [facility] Education and Decision Aids were provided during visit for: Patient Education: Daily bryant cium and vitamin D Last Documented On 8 3:00PM ; [facility] Patient Education: weight be aring exercise Last Documented On 8 3:00PM ; [facility] Medical Equipment - Implanted Devices Includes: Current Devices No Medical Equipment Recorded Medications Includes: Medications discussed during this encounter and other current Medications New / Renewed during this visit OLIVIA COVINGTON on 02/03/2018 Aviane 0.1-20MG-MCG Oral Tablet Provider: OLIVIA Boone 90 day supply: 90 tablet, 3 refills Diagnosis: One tablet daily Pharmacy: [facility] ([facility] Pharmacy) [address] Last Documented On 9 11:26AM By OLIVIA COVINGTON ; [facility] Current Medications (continue as prescribed) Aviane 0.1-20MG-MCG Oral Tablet 02/04/2019 Provider: OLIVIA COVINGTON Diagnosis: One tablet daily Last Documented On 9 9:12AM By OLIVIA COVINGTON ; [facility] Medications Administered Includes: Administered Medications from this encounter No Administered Medications Recorded Vital Signs Includes: Vital Signs from this encounter Vital Name 02/03/2018 03:03P Blood Pressure Sitting L 110/62 BP Cuff Size Regular Height (in) 67 Weight (lb) 124 Body Mass Index (kg/m2) 19.4 BMI Percentile (percentile) 20 Body Surface Area (m2) 1.7 Last Documented: On 02/03/2018 3:05PM ; [facility] Results Includes: Results discussed during this encounter No Results Recorded For Specified Dates History of Present Illness Includes: History of Present Illness from this encounter NEWTON DIAZ is a 17 year old female. - Medication list reviewed - PRIMARY CARE PROVIDER : Dr Rowe Social History Description Last Updated In monogamous relationship 02/03/2018 Last Documented On 8 3:17PM ; [facility] Non-smoker 02/03/2018 Last Documented On 8 3:17PM ; [facility] Not using alcohol 02/03/2018 Last Documented On 8 3:17PM ; [facility] Not using drugs 02/03/2018 Last Documented On 8 3:17PM ; [facility] Sexually active with 1 partners in the l ast year 1 lifetime partner 02/03/2018 Last Documented On 8 3:17PM ; [facility] Social history unchanged 02/03/2018 Last Documented On 8 3:17PM ; [facility] Smoking status : Never smoker 02/03/2018 Last Documented On 8 3:17PM ; [facility] Procedures and Surgical History Includes: Procedures from this encounter Procedures Code Diagnosis Performing Provider Service L ocation Service Date low fat diet Last Documented On 8 3:01PM ; [facility] Medical History Includes: Medical History addressed during this encounter Description Last Updated No recent change in medical history 03/2018 Last Documented On 8 3:17PM ; [facility] LMP: 01/16/2018 02/03/2018 Last Documented On 8 3:17PM ; [facility] Sexually active 02/03/2018 Last Documented On 8 3:17PM ; [facility] Contraception: avaine 02/03/2018 Last Documented On 8 3:17PM ; [facility] History of Gardasil 12/31/2016 Last Documented On 8 3:00PM ; [facility] Family History Includes: Family History addressed during this encounter Description Last Updated Family history unchanged 02/04/2019 Last Documented On 8 3:00PM ; [facility] Maternal grandfather's history of family history of heart disease mgf 02/03/2018 Last Documented On 8 3:17PM ; [facility] Paternal history of diabetes mellitus fa ther 02/03/2018 Last Documented On 8 3:17PM ; [facility] Review of Systems Includes: Review of Systems [...] Location Date Check-In Time Check-Out Time Diagnosis ANNUAL WELL WOMEN EXAM OLIVIA OSORIO [facility] 02/04/20 18 3:02PM 3:19PM Normal Female Exam Clinical Notes Includes: Clinical Notes from this encounter No Clinical Notes Recorded
--- OUTSIDE RECORDS SUMMARY | 2024-10-24 08:26 | XMS_ITS | Clinical Summary ---
Author Organization [facility] Address [address] [address] Phone Care Team Providers Care Kettle Chipper Name Role Phone Unavailable Unavailable Unavailable Reason for Visit and Chief Complaint The Chief Complaint is: 3rd Gardasil 0.5mL admin left deltoid IM, pt tolerated well/dp ~LOT#[id number]-3/27/17 Problems Includes: Problems addressed during this encounter and other active Problems All Visits Onset Date Resolved Date Provider Condition S tatus Dysmenorrhea 12/22/2015 OLIVIA COVINGTON A ctive Last Documented On 6 2:17PM ; [facility] Plan of Treatment Pending Tests Order Diagnosis Results Due Ordering P rovider Injections Gardasil Encounter for immunization 09/25/16 LORETO PALOMO RN [facility] Last Documented On 6 1:10PM ; [facility] Injections Theraputic Injection Encounter for immunization 09/25/16 LORETO PALOMO RN [facility] Last Documented On 6 1:10PM ; [facility] Assessments Includes: Assessments from this encounter No Assessments Recorded Medical Equipment - Implanted Devices Includes: Current Devices No Medical Equipment Recorded Medications Includes: Medications discussed during this encounter and other current Medications Current Medications (continue as prescribed) Aviane 0.1-20MG-MCG Oral Tablet 02/04/2019 Provider: OLIVIA COVINGTON Diagnosis: One tablet daily Last Documented On 9 9:12AM By OLIVIA COVINGTON ; [facility] Medications Administered Includes: Administered Medications from this encounter Medications Administered Diagnosis Date Pro vider Gardasil IM SUSP Encounter for immunization 09/25/2016 LORETO PALOMO RN [facility] 3rd Gardasil left deltoid, pt tolerated well/dp Last Documented On 6 1:09PM By CYNDIE OROSCO MA ; [facility] Vital Signs Includes: Vital Signs from this encounter Vital Name 09/25/2016 01:06P Blood Pressure Sitting (mmHg) 104/68 Height (in) 67 Weight (lb) 116 Body Mass Index (kg/m2) 18.2 BMI Percentile (percentile) 10 Body Surface Area (m2) 1.6 Last Documented: On 09/25/2016 1:08PM ; [facility] Results Includes: Results discussed during this encounter No Results Recorded For Specified Dates History of Present Illness Includes: History of Present Illness from this encounter No History of Present Illness Recorded Social History No Social History Recorded - Smoking Status Unknown Medical History Includes: Medical History addressed during this encounter Description Last Updated Contraception: avaine 02/04/2019 Last Documented On 6 1:06PM ; [facility] LMP: 2016 09/25/2016 Last Documented On 6 1:10PM ; [facility] Family History Includes: Family History addressed during this encounter No Family History Recorded Review of Systems Includes: Review of Systems from this encounter No Review of Systems Recorded Mental Status Includes: Mental Status from this encounter No Mental Status Recorded Functional Status Includes: Functional Status from this encounter No Functional Status Recorded Physical Exam Includes: Physical Exam from this encounter Allergies Includes: Active Allergies No Known Allergies Encounters Encounter Provider Location Date Check-In Time Check-Out Time Diagnosis INJECTION LORETO MANZANO [facility] BAT BOY/GIRL 09/25/2016 12:55PM 1:12PM Clinical Notes Includes: Clinical Notes from this encounter No Clinical Notes Recorded
--- OUTSIDE RECORDS SUMMARY | 2024-10-24 08:26 | XMS_ITS | Clinical Summary ---
Author Organization [facility] Address [address] [place] [address] Phone Care Team Providers Care Software Integrator Name Role Phone Unavailable Unavailable Unavailable Reason for Visit and Chief Complaint WALK-IN CLINIC SICK VISIT Problems Includes: Problems addressed during this encounter and other active Problems All Visits Onset Date Resolved Date Provider Condition S tatus Dysmenorrhea 12/22/2015 OLIVIA COVINGTON A ctive Last Documented On 6 2:17PM ; [facility] Plan of Treatment No Plan of Treatment Recorded Assessments Includes: Assessments from this encounter No Assessments Recorded Medical Equipment - Implanted Devices Includes: Current Devices No Medical Equipment Recorded Medications Includes: Medications discussed during this encounter and other current Medications Current Medications (continue as prescribed) Aviane 0.1-20MG-MCG Oral Tablet 02/04/2019 Provider: OLIVIA COVINGTON Diagnosis: One tablet daily Last Documented On 9 9:12AM By OLIVIA COVINGTON ; [facility] Medications Administered Includes: Administered Medications from this encounter No Administered Medications Recorded Results Includes: Results discussed during this encounter No Results Recorded For Specified Dates History of Present Illness Includes: History of Present Illness from this encounter No History of Present Illness Recorded Social History No Social History Recorded - Smoking Status Unknown Medical History Includes: Medical History addressed during this encounter No Medical History Recorded Family History Includes: Family History addressed during this encounter No Family History Recorded Review of Systems Includes: Review of Systems from this encounter No Review of Systems Recorded Mental Status Includes: Mental Status from this encounter No Mental Status Recorded Functional Status Includes: Functional Status from this encounter No Functional Status Recorded Physical Exam Includes: Physical Exam from this encounter No Physical Exam Recorded Allergies Includes: Active Allergies No Known Allergies Clinical Notes Includes: Clinical Notes from this encounter No Clinical Notes Recorded
[2024-10-24 08:51] LABS: Basophils Percent Auto 0.5 % (0.2-1.2); Eosinophils Absolute Auto 0.1 K/mm3 (0-0.3); Eosinophils Percent Auto 0.9 % (0-4.4); Hematocrit 40.2 % (37.0-47.0); Hemoglobin 12.9 g/dL (12.0-15.0); Immature Granulocyte Absolute 0.01 K/mm3 (0.00-0.031); Immature Granulocyte Percent A 0.2 % (0-0.5); Lymphocytes Absolute Auto 1.98 K/mm3 (0.9-3.2); Lymphocytes Percent Auto 31.3 % (18.3-44.2); Mean Corpuscular HGB Conc 32.1 g/dl (32-36); Mean Corpuscular Hemoglobin 26.9 pg (26-34); Mean Corpuscular Volume 83.8 fl (80-100); Mean Platelet Volume 10.8 fl (7.4-10.4); Monocytes Absolute Auto 0.4 K/mm3 (0.1-0.6); Monocytes Percent Auto 6.6 % (2.6-8.5); Neutrophils Absolute Auto 3.8 K/mm3 (1.3-6.7); Neutrophils Percent Auto 60.5 % (45.5-73.1); Platelet Count Result 245 k/mm3 (150-375); Red Cell Distribution Width 15.3 % (11.5-14.5); White Blood Count 6.3 K/mm3 (4.5-10.0)
[2024-10-24 08:52] VITALS: BP 115/73; PULSE 95; RESP 16; O2SAT 100
[2024-10-24 08:55] LABS: BEDSIDEPREGUCG Negative (Negative)
[2024-10-24 09:08] LABS: Add Urine Microscopic? YES; Appearance Urine Clear (Clear); Bacteria Urine None Seen /hpf; Bilirubin Urine Negative (Negative); Blood Urine Negative (Negative); Color Urine Yellow (Yellow); Glucose Urine UA Negative (Negative); Ketones Urine Trace mg/dL (Negative); Leukocyte Esterase Ur Negative LEU/UL (Negative); Nitrate Urine Negative (Negative); Non Pathogenic Casts 0-2; Protein Urine Trace mg/dL (Negative); RBC Urine 0-2 /hpf (0-2); Specific Grav Ur 1.021 (1.001-1.035); Squamous Epithelial Cell Urine None Seen /hpf (Few); WBC Urine 0-5 /hpf (0-3)
[2024-10-24 09:16] LABS: Alanine Aminotransferase 18 U/L (6-35); Albumin Level 4.4 g/dL (3.5-5.1); Alkaline Phosphatase 92 U/L (38-126); Anion Gap 10 mmol/L (4-12); Aspartate Amino Transferase 27 U/L (14-36); Bilirubin,Total 0.4 mg/dL (0.2-1.3); Blood Urea Nitrogen 6 mg/dL (7-17); Calcium 9.3 mg/dL (8.4-10.2); Carbon Dioxide 26 mmol/L (22-30); Chloride 102 mmol/L (98-107); Estimated CRCL calculation 121 ml/min; Estimated Glomerular Filt Rate > 60; Glucose 100 mg/dL (65-110); Lipase 63 U/L (23-300); Potassium 3.2 mmol/L (3.4-5.0); Sodium 138 mmol/L (137-145)
--- OUTSIDE RECORDS SUMMARY | 2024-10-24 09:16 | XMS_ITS | Clinical Summary ---
Author Organization [facility] Address [address] [place] [address] Phone Care Team Providers Care Travel Information Center Supervisor Name Role Phone Unavailable Unavailable Unavailable Reason for Visit and Chief Complaint gynecologic annual exam - The Chief Complaint is: Annual Problems Includes: Problems addressed during this encounter and other active Problems All Visits Onset Date Resolved Date Provider Condition S tatus Dysmenorrhea 12/22/2015 OLIVIA OSORIO [facility]- A ctive Last Documented On 6 2:17PM ; [facility] Plan of Treatment - Clinical summary provided to patient - Last Documented On 12/31/2016 2:33PM ; [facility] Instructions to patient Instructions for patient : B reast Self Exam discussed Last Documented On 7 2:18PM ; [facility] Gardasil information given a nd series encouraged Series completed! Last Documented On 7 2:19PM ; [facility] Safe sex counseling Last Documented On 7 2:19PM ; [facility] Education and Decision Aids were provided during visit for: Patient Education: Daily bryant cium and vitamin D Last Documented On 7 2:18PM ; [facility] Patient Education: weight be aring exercise Last Documented On 7 2:18PM ; [facility] Assessments Includes: Assessments from this encounter Findings - NORMAL FEMALE EXAM - Last Documented On 12/31/2016 2:33PM ; [facility] Instructions Includes: Instructions from this encounter Instructions to patient Instructions for patient : B reast Self Exam discussed Last Documented On 7 2:18PM ; [facility] Gardasil information given a nd series encouraged Series completed! Last Documented On 7 2:19PM ; [facility] Safe sex counseling Last Documented On 7 2:19PM ; [facility] Education and Decision Aids were provided during visit for: Patient Education: Daily bryant cium and vitamin D Last Documented On 7 2:18PM ; [facility] Patient Education: weight be aring exercise Last Documented On 7 2:18PM ; [facility] Medical Equipment - Implanted Devices Includes: Current Devices No Medical Equipment Recorded Medications Includes: Medications discussed during this encounter and other current Medications New / Renewed during this visit OLIVIA COVINGTON on 12/31/2016 Aviane 0.1-20MG-MCG Oral Tablet Provider: OLIVIA Boone 90 day supply: 90 tablet, 3 refills Diagnosis: Dysmenorrhea, unspecified One tablet daily Pharmacy: [facility] [address], [address] - Last Documented On 8 6:58AM By OLIVIA COVINGTON ; [facility] Current Medications (continue as prescribed) Aviane 0.1-20MG-MCG Oral Tablet 02/04/2019 Provider: OLIVIA COVINGTON Diagnosis: One tablet daily Last Documented On 9 9:12AM By OLIVIA COVINGTON ; [facility] Medications Administered Includes: Administered Medications from this encounter No Administered Medications Recorded Vital Signs Includes: Vital Signs from this encounter Vital Name 12/31/2016 02:23P Blood Pressure Sitting L 100/60 BP Cuff Size Regular Height (in) 67 Weight (lb) 114 Body Mass Index (kg/m2) 17.9 BMI Percentile (percentile) 7 Body Surface Area (m2) 1.6 Last Documented: On 12/31/2016 2:25PM ; [facility] Results Includes: Results discussed during this encounter No Results Recorded For Specified Dates History of Present Illness Includes: History of Present Illness from this encounter NEWTON DIAZ is an 16 year old female. - Medication list reviewed - PRIMARY CARE PROVIDER : Dr Clay Social History Description Last Updated Non-smoker 12/31/2016 Last Documented On 7 2:33PM ; [facility] Not using alcohol 12/31/2016 Last Documented On 7 2:33PM ; [facility] Not using drugs 12/31/2016 Last Documented On 7 2:33PM ; [facility] Social history unchanged 12/31/2016 Last Documented On 7 2:33PM ; [facility] Smoking status : Never smoker 12/31/2016 Last Documented On 7 2:33PM ; [facility] Procedures and Surgical History Includes: Procedures from this encounter Procedures Code Diagnosis Performing Provider Service L ocation Service Date low fat diet Last Documented On 7 2:19PM ; [facility] Medical History Includes: Medical History addressed during this encounter Description Last Updated No recent change in medical history 11/2016 Last Documented On 7 2:33PM ; [facility] History of Gardasil 12/31/2016 Last Documented On 7 2:33PM ; [facility] LMP: 12/29/2016 12/31/2016 Last Documented On 7 2:33PM ; [facility] Not sexually active 12/31/2016 Last Documented On 7 2:33PM ; [facility] Contraception: avaine 12/31/2016 Last Documented On 7 2:33PM ; [facility] Family History Includes: Family History addressed during this encounter Description Last Updated Family history unchanged 12/31/2016 Last Documented On 7 2:33PM ; [facility] Family medical history was unknown 12/31 Last Documented On 7 2:33PM ; [facility] Review of Systems Includes: Review of [...] Location Date Check-In Time Check-Out Time Diagnosis ALARM OPERATOR EXAM [facility] 2:18PM 2:33PM Normal Female Exam Clinical Notes Includes: Clinical Notes from this encounter No Clinical Notes Recorded
--- OUTSIDE RECORDS SUMMARY | 2024-10-24 09:16 | XMS_ITS ---
Author Organization [facility] Address [address] [place] [address] Phone Care Team Providers Care Change Management Administrator Name Role Phone Unavailable Unavailable Unavailable Problems Includes: Active, inactive, and resolved Problems All Visits Onset Date Resolved Date Provider Condition S tatus Dysmenorrhea 12/22/2015 OLIVIA Wise OSORIO NP-BC A ctive Last Documented On 6 2:17PM ; [facility] Plan of Treatment Findings Encounter Date Ordered Clinical summary pro vided to patient BIOLOGICAL AIDE EXAM with OLIVIA OSORIO WHNP-BC 02/04/2019 Last Documented On 9 9:02AM ; [facility] Ordered Clinical summary pro vided to patient ANNUAL WELL WOMEN EXAM with OLIVIA A OSORIO WHNP-BC 02/03/2018 Last Documented On 8 3:17PM ; [facility] Ordered Clinical summary pro vided to patient BIOLOGICAL AIDE EXAM with OLIVIA Wise OSORIO WHNP-BC 12/31/2016 Last Documented On 7 2:33PM ; [facility] Ordered Clinical summary pro vided to patient 3 MONTH CHECK with OLIVIA Wise OSORIO WHNP-BC 03/26/2016 Last Documented On 6 10:54AM ; [facility] ER/pain precautions reviewed NEW BIOLOGICAL AIDE EXAM with Poalo Wise JO WHNP-BC 12/22/2015 Last Documented On 6 2:46PM ; [facility] Ordered Clinical summary pro vided to patient NEW BIOLOGICAL AIDE EXAM with OLIVIA Wise OSORIO WHNP-BC 12/22/2015 Last Documented On 6 2:46PM ; [facility] Instructions to patient Instructions for patient : B reast Self Exam discussed Last Documented On 9 8:49AM ; [facility] Gardasil information given a nd series encouraged Series completed! Last Documented On 9 8:50AM ; [facility] Safe sex counseling Last Documented On 9 8:50AM ; [facility] Instructions for patient : B reast Self Exam discussed Last Documented On 8 3:00PM ; [facility] Gardasil information given a nd series encouraged Series completed! Last Documented On 8 3:01PM ; [facility] Safe sex counseling Last Documented On 8 3:01PM ; [facility] Instructions for patient : B reast Self Exam discussed Last Documented On 7 2:18PM ; [facility] Gardasil information given a nd series encouraged Series completed! Last Documented On 7 2:19PM ; [facility] Safe sex counseling Last Documented On 7 2:19PM ; [facility] Safe sex counseling Last Documented On 6 10:39AM ; [facility] Instructions for patient : B reast Self Exam discussed Last Documented On 6 2:17PM ; [facility] Instructions for patient : p atient is to keep a menstrual diary to help with further evaluation and treatment Last Documented On 6 2:17PM ; [facility] Instructions for patient ER if bleeding through reg. sized pad/tampon < 1 hour Last Documented On 6 2:17PM ; [facility] Gardasil information given a nd series encouraged Last Documented On 6 2:17PM ; [facility] Safe sex counseling Last Documented On 6 2:17PM ; [facility] Education and Decision Aids were provided during visit for: Patient Education: Daily bryant cium and vitamin D Last Documented On 9 8:49AM ; [facility] Patient Education: weight be aring exercise Last Documented On 9 8:49AM ; [facility] Patient Education: Daily bryant cium and vitamin D Last Documented On 8 3:00PM ; [facility] Patient Education: weight be aring exercise Last Documented On 8 3:00PM ; [facility] Patient Education: Daily bryant cium and vitamin D Last Documented On 7 2:18PM ; [facility] Patient Education: weight be aring exercise Last Documented On 7 2:18PM ; [facility] Patient Education: Daily bryant cium and vitamin D Last Documented On 6 2:17PM ; [facility] control consent review ed and signed Last Documented On 6 2:17PM ; [facility] Assessments Includes: Assessments for all patient encounters Findings Encounter Date NORMAL FEMALE EXAM BIOLOGICAL AIDE EXAM with OLIVIA Garcia [facility]- 02/04/2019 Last Documented On 9 9:02AM ; [facility] NORMAL FEMALE EXAM ANNUAL WELL WOMEN EXAM with Paolo OSORIO [facility]- 02/03/2018 Last Documented On 8 3:17PM ; [facility] NORMAL FEMALE EXAM BIOLOGICAL AIDE EXAM with OLIVIA Garcia [facility]- 12/31/2016 Last Documented On 7 2:33PM ; [facility] Instructions Includes: Instructions for all patient encounters Instructions to patient Instructions for patient : B reast Self Exam discussed Last Documented On 9 8:49AM ; [facility] Gardasil information given a nd series encouraged Series completed! Last Documented On 9 8:50AM ; [facility] Safe sex counseling Last Documented On 9 8:50AM ; [facility] Instructions for patient : B reast Self Exam discussed Last Documented On 8 3:00PM ; [facility] Gardasil information given a nd series encouraged Series completed! Last Documented On 8 3:01PM ; [facility] Safe sex counseling Last Documented On 8 3:01PM ; [facility] Instructions for patient : B reast Self Exam discussed Last Documented On 7 2:18PM ; [facility] Gardasil information given a nd series encouraged Series completed! Last Documented On 7 2:19PM ; [facility] Safe sex counseling Last Documented On 7 2:19PM ; [facility] Safe sex counseling Last Documented On 6 10:39AM ; [facility] Instructions for patient : B reast Self Exam discussed Last Documented On 6 2:17PM ; [facility] Instructions for patient : p atient is to keep a menstrual diary to help with further evaluation and treatment Last Documented On 6 2:17PM ; [facility] Instructions for patient ER if bleeding through reg. sized pad/tampon < 1 hour Last Documented On 6 2:17PM ; [facility] Gardasil information given a nd series encouraged Last Documented On 6 2:17PM ; [facility] Safe sex counseling Last Documented On 6 2:17PM ; [facility] Education and Decision Aids were provided during visit for: Patient Education: Daily bryant cium and vitamin D Last Documented On 9 8:49AM ; [facility] Patient Education: weight be aring exercise Last Documented On 9 8:49AM ; [facility] Patient Education: Daily bryant cium and vitamin D Last Documented On 8 3:00PM ; [facility] Patient Education: weight be aring exercise Last Documented On 8 3:00PM ; [facility] Patient Education: Daily bryant cium and vitamin D Last Documented On 7 2:18PM ; [facility] Patient Education: weight be aring exercise Last Documented On 7 2:18PM ; [facility] Patient Education: Daily bryant cium and vitamin D Last Documented On 6 2:17PM ; [facility] control consent review ed and signed Last Documented On 6 2:17PM ; [facility] Medical Equipment - Implanted Devices Includes: Current and historical Devices No Medical Equipment Recorded Medications Includes: Current and historical Medications Current Medications (continue as prescribed) Aviane 0.1-20MG-MCG Oral Tablet 02/04/2019 Provider: OLIVIA COVINGTON Diagnosis: One tablet daily Last Documented On 9 9:12AM By OLIVIA COVINGTON ; [facility] Past Medications on file Aviane 0.1-20MG-MCG Oral Tablet 12/17/2018 - 02/04/2019 Provider: OLIVIA TRINH NP-BC Diagnosis: One tablet daily Last Documented On 9 9:01AM By OLIVIA COVINGTON ; [facility] Aviane 0.1-20MG-MCG Oral Tablet 02/03/2018 - 12/17/2018 Provider: OLIVIA TRINH NP-BC Diagnosis: One tablet daily Last Documented On 9 11:26AM By OLIVIA COVINGTON ; [facility] Aviane 0.1-20MG-MCG Oral Tablet 01/07/2018 - 02/03/2018 Provider: OLIVIA TRINH PARTY DEMONSTRATOR-BC Diagnosis: One tablet daily-no further refills until appt. ! Last Documented On 8 3:17PM By OLIVIA COVINGTON ; [facility] Aviane 0.1-20MG-MCG Oral Tablet 12/06/2017 - 01/07/2018 Provider: OLIVIA TRINH PARTY DEMONSTRATOR-BC Diagnosis: One tablet daily-no further refills until appt. ! Last Documented On 8 3:07PM By OLIVIA COVINGTON ; [facility] Aviane 0.1-20MG-MCG Oral Tablet 12/31/2016 - 12/06/2017 Provider: OLIVIA DUPREEBC Diagnosis: Dysmenorrhea, unspecified One tablet daily Last Documented On 8 6:58AM By OLIVIA COVINGTON ; [facility] Aviane 0.1-20 MG-MCG Tablet 06/28/2016 - 12/31/2016 Provider: LORETO PALOMO RN [facility] Diagnosis: Dysmenorrhea, unspecified One tablet daily Last Documented On 7 2:32PM By OLIVIA COVINGTON ; [facility] Aviane 0.1-20 MG-MCG Tablet 03/26/2016 - 06/28/2016 Provider: OLIVIA DUPREEBC Diagnosis: Dysmenorrhea, unspecified One tablet daily Last Documented On 6 10:22AM By LORETO PALOMO FRIEDA-BC ; [facility] Aviane 0.1-20 MG-MCG Tablet 12/22/2015 - 03/26/2016 Provider: OLIVIA COVINGTON Diagnosis: Dysmenorrhea, unspecified One tablet daily Last Documented On 6 10:45AM By OLIVIA COVINGTON ; [facility] Aviane 0.1-20 MG-MCG Tablet 12/22/2015 - 12/22/2015 Provider: OLIVIA COVINGTON Diagnosis: Dysmenorrhea, unspecified One tablet daily Last Documented On 6 2:44PM By OLIVIA COVINGTON ; [facility] Medications Administered Includes: Administered Medications in patient's chart Medications Administered Diagnosis Date Pro vider Gardasil IM SUSP Encounter for immunization 09/25/2016 LORETO PALOMO RN [facility] 3rd Gardasil left deltoid, pt tolerated well/dp Last Documented On 6 1:09PM By CYNDIE OROSCO MA ; [facility] Gardasil IM SUSP Encounter for immunization 05/25/2016 OLIVIA DUPREE 2nd Gardasil admin 0.5mL right deltoid, pt tolerated well Last Documented On 6 2:17PM By CYNDIE OROSCO MA ; [facility] Gardasil IM SUSP Encounter for immunization 03/26/2016 [facility] Last Documented On 6 10:53AM By GRACY RGOERS ; [facility] Results Includes: Results from 10/24/2023 through 10/24/2024 No Results Recorded For Specified Dates History of Present Illness History of Present Illness not supported for this document type No History of Present Illness Recorded Social History Description Last Updated Cigarette smoking 0 pack(s)/day 02/05/20 19 Last Documented On 9 9:02AM ; [facility] In monogamous relationship 02/04/2019 Last Documented On 9 9:02AM ; [facility] Sexually active with 1 partners in the l ast year 02/04/2019 Last Documented On 9 9:02AM ; [facility] Social history unchanged 02/04/2019 Last Documented On 9 9:02AM ; [facility] Smoking status : Never smoker 02/04/2019 Last Documented On 9 9:02AM ; [facility] Medical History Includes: Medical History in patient's chart Description Last Updated No recent change in medical history 04/2019 Last Documented On 9 9:02AM ; [facility] LMP: 01/23/2019 02/04/2019 Last Documented On 9 9:02AM ; [facility] Sexually active 02/04/2019 Last Documented On 9 9:02AM ; [facility] Contraception: avaine 02/04/2019 Last Documented On 9 9:02AM ; [facility] History of Gardasil 12/31/2016 Last Documented On 7 2:33PM ; [facility] Family History Includes: Family History in patient's chart Description Last Updated Family history unchanged 02/04/2019 Last Documented On 9 9:02AM ; [facility] Paternal history of diabetes mellitus fa ther 02/04/2019 Last Documented On 9 9:02AM ; [facility] Family medical history was unknown 12/31 Last Documented On 7 2:33PM ; [facility] Review of Systems Review of Systems [...]
--- OUTSIDE RECORDS SUMMARY | 2024-10-24 09:16 | XMS_ITS | Clinical Summary ---
Author Organization [facility] Address [address] [place] [address] Phone Care Team Providers Care Residential Roofer Name Role Phone Unavailable Unavailable Unavailable Reason for Visit and Chief Complaint gynecologic annual exam - The Chief Complaint is: Annual-declines std testing same partner Problems Includes: Problems addressed during this encounter and other active Problems All Visits Onset Date Resolved Date Provider Condition S tatus Dysmenorrhea 12/22/[address] [facility]- A ctive Last Documented On 6 2:17PM ; [facility] Plan of Treatment - Clinical summary provided to patient - Last Documented On 02/04/2019 9:02AM ; [facility] Instructions to patient Instructions for patient : B reast Self Exam discussed Last Documented On 9 8:49AM ; [facility] Gardasil information given a nd series encouraged Series completed! Last Documented On 9 8:50AM ; [facility] Safe sex counseling Last Documented On 9 8:50AM ; [facility] Education and Decision Aids were provided during visit for: Patient Education: Daily bryant cium and vitamin D Last Documented On 9 8:49AM ; [facility] Patient Education: weight be aring exercise Last Documented On 9 8:49AM ; [facility] Assessments Includes: Assessments from this encounter Findings - NORMAL FEMALE EXAM - Last Documented On 02/04/2019 9:02AM ; [facility] Instructions Includes: Instructions from this encounter Instructions to patient Instructions for patient : B reast Self Exam discussed Last Documented On 9 8:49AM ; [facility] Gardasil information given a nd series encouraged Series completed! Last Documented On 9 8:50AM ; [facility] Safe sex counseling Last Documented On 9 8:50AM ; [facility] Education and Decision Aids were provided during visit for: Patient Education: Daily bryant cium and vitamin D Last Documented On 9 8:49AM ; [facility] Patient Education: weight be aring exercise Last Documented On 9 8:49AM ; [facility] Medical Equipment - Implanted Devices Includes: Current Devices No Medical Equipment Recorded Medications Includes: Medications discussed during this encounter and other current Medications New / Renewed during this visit OLIVIA COVINGTON on 02/04/2019 Aviane 0.1-20MG-MCG Oral Tablet Provider: OLIVIA Boone 90 day supply: 90 tablet, 3 refills Diagnosis: One tablet daily Pharmacy: [facility] ([facility] Pharm[facility]) [address] Last Documented On 9 9:12AM By OLIVIA COVINGTON ; [facility] Medications Administered Includes: Administered Medications from this encounter No Administered Medications Recorded Vital Signs Includes: Vital Signs from this encounter Vital Name 02/04/2019 08:53A 02/04/2019 08: 51A Blood Pressure Sitting L 118/78 BP Cuff Size Regular Height (in) 67 Weight (lb) 126 Body Mass Index (kg/m2) 19.7 Body Surface Area (m2) 1.7 Last Documented: On 02/04/2019 8:53AM ; [facility] On 02/04/2019 8:52AM ; [facility] Results Includes: Results discussed [...] Documented On 9 9:02AM ; [facility] In monogamous relationship 02/04/2019 Last Documented On 9 9:02AM ; [facility] Sexually active with 1 partners in the l ast year 02/04/2019 Last Documented On 9 9:02AM ; [facility] Social history unchanged 02/04/2019 Last Documented On 9 9:02AM ; [facility] Smoking status : Never smoker 02/04/2019 Last Documented On 9 9:02AM ; [facility] Procedures and Surgical History Includes: Procedures from this encounter Procedures Code Diagnosis Performing Provider Service L ocation Service Date low fat diet Last Documented On 9 8:50AM ; [facility] Chlamydia trachomatis culture was perfor med Last Documented On 9 8:50AM ; [facility] Neisseria gonorrhea culture was performe d Last Documented On 9 8:50AM ; [facility] Cervical Pap Smear performed [id number] Last Documented On 9 8:50AM ; [facility] Medical History Includes: Medical History addressed during this encounter Description Last Updated No recent change in medical history 04/2019 Last Documented On 9 9:02AM ; [facility] LMP: 01/23/2019 02/04/2019 Last Documented On 9 9:02AM ; [facility] Sexually active 02/04/2019 Last Documented On 9 9:02AM ; [facility] Contraception: avaine 02/04/2019 Last Documented On 9 9:02AM ; [facility] History of Gardasil 12/31/2016 Last Documented On 9 8:46AM ; [facility] Family History Includes: Family History addressed during this encounter Description Last Updated Family history unchanged 02/04/2019 Last Documented On 9 9:02AM ; [facility] Paternal history of diabetes mellitus fa ther 02/04/2019 Last Documented On 9 9:02AM ; [facility] Review of Systems Includes: Review of Systems [...] Location Date Check-In Time Check-Out Time Diagnosis MINI BAR ATTENDANT EXAM OLIVIA OSORIO [facility] 9 8:45AM 9:03AM Normal Female Exam Clinical Notes Includes: Clinical Notes from this encounter No Clinical Notes Recorded
--- OUTSIDE RECORDS SUMMARY | 2024-10-24 09:16 | XMS_ITS | Patient Health Summary ---
Author Organization [facility] Address [address] [place] [address] Care Team Providers Care Activity Assistant Name Role Phone Unavailable Primary Care Provider Unavailabl e Note from [facility] [place],non-owned Affiliates and Associated Physician Practices is amultiple site organization consisting of ambulatory clinics and hospital sitesin [place], [place], [place] and [place]. This disclosure is being madepursuant to the Care Everywhere program and may not contain all information available regarding this patient. Last updated 18.[facility] Immunizations * TDAP (7yrs+)(Given 02/03/2021) Social History Tobacco Use Types Packs/Day Years Used Date Smoking Tobacco: Never Assessed Sex and Gender Information Value Date Recorded Sex Assigned at Not on file Gender Identity Not on file Sexual Orientation Not on file
--- OUTSIDE RECORDS SUMMARY | 2024-10-24 09:16 | XMS_ITS | Referral Summary ---
Author Organization [facility] Address [facility] [facility] [place] [address] Care Team Providers Care Weaver Needle Loom Name Role Phone Unavailable Primary Care Provider Unavailabl e Source Comments [facility],non-owned Affiliates and Associated Physician Practices is amultiple site organization consisting of ambulatory clinics and hospital sitesin [place], [place], [place] and [place]. This disclosure is being madepursuant to the Care Everywhere program and may not contain all information available regarding this patient. Last updated 18.[facility] [employer] Immunizations Name Administration Dates Next Due TDAP (7yrs+) 02/03/2021 Social History Tobacco Use Types Packs/Day Years Used Date Smoking Tobacco: Never Assessed Sex and Gender Information Value Date Recorded Sex Assigned at Not on file Gender Identity Not on file Sexual Orientation Not on file Plan of Treatment Not on file
--- OUTSIDE RECORDS SUMMARY | 2024-10-24 09:16 | XMS_ITS ---
Care Plan - [facility] Created on: October 24, 2024 ZEINAB DIAZ : 2000 Sex: Female Author Organization [facility] Address [address] [place] [address] Phone Care Team Providers Care Manager Plumbing Name Role Phone Unavailable Unavailable Unavailable
--- OUTSIDE RECORDS SUMMARY | 2024-10-24 09:16 | XMS_ITS | Referral Summary ---
Author Organization [facility] [address] Address [address] [place] [phone] Care Team Providers Care Buggy Runner Name Role Phone Raza Aggarwal MD Primary Care Provider [phone] Encounters Date Type Department Care Team Description 10/16/2024 Telephone [facility] [address] [place] [address] Heavenly Carbone LPN 10/09/2024 11:01 AM ELECTRIC BATH ATTENDANT - 10/09/2024 11:59 PM ELECTRIC BATH ATTENDANT Hospital Encounter [facility] [address] [place] [phone] Screening for malignant neoplasm of cervix Discharge Disposition: Discharge to home or self care 10/09/2024 10:30 AM ELECTRIC BATH ATTENDANT Office Visit [facility] [address] [place] [address] Flor Stark DO Encounter for annual routine gynecological examination (Primary Dx); Screening for malignant neoplasm of cervix; Encounter for surveillance of contraceptive pills 09/01/2024 8:15 AM ELECTRIC BATH ATTENDANT Office Visit [facility] Primary Care at [address] [address] Raza Aggarwal MD Annual physical [...] on file Legal Sex Female 12:37 PM ELECTRIC BATH ATTENDANT Gender Identity Not on file Sexual Orientation Not on file Occupation Industry Job Start Date Job End Date Not on file Not on file Not on file Not on file Last Filed Vital Signs Vital Sign Reading Time Taken Comments Blood Pressure 116/72 10/09/2024 10:14 AM ELECTRIC BATH ATTENDANT Pulse 88 09/01/2024 8:20 AM ELECTRIC BATH ATTENDANT Temperature 36.7 ??C (98.1 ??F) 09/01/2024 8:20 AM CS T Respiratory Rate 16 05/24/2022 10:21 AM CDT Oxygen Saturation 98% 09/01/2024 8:20 AM ELECTRIC BATH ATTENDANT Inhaled Oxygen Concentration - - Weight 70.8 kg (156 lb) 10/09/2024 10:14 AM ELECTRIC BATH ATTENDANT Height 167.6 cm (5' 6 ) 10/09/2024 10:14 AM ELECTRIC BATH ATTENDANT Body Mass Index 25.18 10/09/2024 10:14 AM ELECTRIC BATH ATTENDANT Plan of Treatment Not on file Procedures Procedure Name Priority Date/Time Associated Diagnosis Comments HIGH RISK HPV DNA DETECTION WITH GENOTYPING Routine 10/09/2024 11:33 AM ELECTRIC BATH ATTENDANT THINPREP PROCESSING (MOLECULAR COMPONENT) Routine 10/09/2024 11:01 AM ELECTRIC BATH ATTENDANT Screening for malignant neoplasm of cervix PAP WITH REFLEX TO HIGH RISK HPV Routine 10/09/2024 10:27 AM ELECTRIC BATH ATTENDANT Screening for malignant neoplasm of cervix from Last 3 Months Results * High Risk HPV DNA Detection with Genotyping (Molecular component) (10/09/2024 11:33 AM ELECTRIC BATH ATTENDANT) HPV HR 16 Not Detected Not Detected [facility] Comment:Testing performed by : [facility], [address] [place]., [address] HPV HR 18 Not Detected Not Detected [facility] Comment:Testing performed by : [facility], [address] [place]., [address] HPV HR Non 16/18 Not Detected Not [...] this test have been verified by the [facility] Molecular Infectious Disease laboratory. Correlate with separately reported cytology results, as applicable. Interpretive data last revised 23 Testing performed by: [facility], [address] [place]., [address] Endocervical 10/09/2024 11:3 3 AM ELECTRIC BATH ATTENDANT 10/16/2024 4:13 AM ELECTRIC BATH ATTENDANT Flor Stark DO LAB BODY FLUIDS AND STO OLS ORDERABLES Final Result [facility] [address] [place] [address] BJ * ThinPrep processing (Molecular component) (10/09/2024 11:01 AM ELECTRIC BATH ATTENDANT) ThinPrep processing (Molecular component) Specimen received for processing. [facility] Comment:Testing performed by : [facility], [address] [place]., [address] Endocervical 10/09/2024 11:0 1 AM ELECTRIC BATH ATTENDANT 10/12/2024 12:16 PM ELECTRIC BATH ATTENDANT Flor Stark DO LAB BODY FLUIDS AND STO OLS ORDERABLES Final Result [facility] [address] [place] [address] BJ * (ABNORMAL) Pap with reflex to High Risk HPV and Genotyping (Cytology Component) (10/09/2024 10:27 AM ELECTRIC BATH ATTENDANT) Thin prep (Pap test) 10/09/2024 10:27 AM ELECTRIC BATH ATTENDANT 10/09/2024 10:27 AM ELECTRIC BATH ATTENDANT Narrative PATHOLOGY CH - 10/14/2024 3:39 PM ELECTRIC BATH ATTENDANT [facility] Department of Pathology [address] [place] [address] Final Report with Addendum Note to Patients: [...] the details. Patient Name: ??LINSEY DIAZ Address: ??[address] [place] [address] [place], ?? [place], [place] ??[address] Gender: ??F : ??2000 (Age: 24) Service: ?? Location: ?? Hospital #: ??[id number] Patient Type: ??[facility] SPECIMEN Taken: ??10/09/2024 Received: ??10/09/2024 Accessioned:: ??10/12/2024 Reported: ??10/14/2024 Physician(s): Luis Santos D.O. Diagnosis: SOURCE OF SPECIMEN ? Imaged Thinprep Pap Test w/ Reflex HPV - Reconstructive Dentist Cytologic Material: STATEMENT OF ADEQUACY ?- Specimen [...] this test have been verified by the [facility] Molecular Infectious Disease laboratory. Correlate with reported cytology results, as applicable. Interpretive data last revised 23 ALLIE Trejo(ASCP)Report Electronically Reviewed and Signed Out By ??ALLIE Trejo(ASCP) ??10/16/2024 10:57:17 ?? Specimen(s) Received: A: Imaged Thinprep Pap Test w/ Reflex HPV - Reconstructive Dentist Cytologic Material Clinical History: Last Menstrual Period: [...] determined by the Surgical Pathology Department at [facility] as part of an ongoing quality improvement coordinator (rn) program and in compliance with federally mandated [...] characteristics determined by the Surgical Pathology Department [facility]. ??It has not been cleared or approved by the U. S. Food and Drug Administration. Flor Stark DO LAB CYTOLOGY ORDERABLES Final Result PATHOLOGY [address] [place] [address] from Last 3 Months Insurance [facility] [employer] Address: [facility] [id number] [place] [address] * Guarantor: LINSEY DIAZ Account Type Relation to Patient Date of Phone Billing Address Personal/Family 2000 [address] [place] [address] Care Teams Buggy Runner Relationship Specialty Start Date End [place] [address] PCP - General Family Medicine 07/31/21
--- OUTSIDE RECORDS SUMMARY | 2024-10-24 09:16 | XMS_ITS | Clinical Summary ---
Author Organization [facility] [employer] Address [facility] [place] [address] Care Team Providers Care Parer Name Role Phone Unavailable Primary Care Provider Unavailabl e Source Comments [facility] [employer],non-owned Affiliates and Associated Physician Practices is amultiple site organization consisting of ambulatory clinics and hospital sitesin [place], [place], [place] and [place]. This disclosure is being madepursuant to the Care Everywhere program and may not contain all information available regarding this patient. Last updated 18.[facility] [employer] [facility] [employer] Immunizations Name Administration Dates Next Due TDAP [...]
--- OUTSIDE RECORDS SUMMARY | 2024-10-24 09:16 | XMS_ITS | Clinical Summary ---
Author Organization [facility] [address] [place] Address [facility] [place] [address] Care Team Providers Care Manager Sharepoint Name Role Phone Raza Aggarwal MD Primary Care Provider [phone] Allergies No known active allergies Medications levonorgestreL- [...] Type Department Care Team Description 10/16/2024 Telephone [facility] [address] [place] [phone] Heavenly Carbone LPN 10/09/2024 11:01 AM BIOMEDICAL ENGINEERING PROFESSOR - 10/09/2024 11:59 PM BIOMEDICAL ENGINEERING PROFESSOR Hospital Encounter [facility] [address] [place] [address] Screening for malignant neoplasm of cervix Discharge Disposition: Discharge to home or self care 10/09/2024 10:30 AM BIOMEDICAL ENGINEERING PROFESSOR Office Visit [facility] [address] [place] [phone] Flor Stark, Encounter for annual routine gynecological examination (Primary Dx); Screening for malignant neoplasm of cervix; Encounter for surveillance of contraceptive pills 09/01/2024 8:15 AM BIOMEDICAL ENGINEERING PROFESSOR Office Visit [facility] Primary Care at [address] [address] Raza Aggarwal MD Annual physical [...] on file Legal Sex Female 12:37 PM BIOMEDICAL ENGINEERING PROFESSOR Gender Identity Not on file Sexual Orientation [...] Comments Blood Pressure 116/72 10/09/2024 10:14 AM BIOMEDICAL ENGINEERING PROFESSOR Pulse 88 09/01/2024 8:20 AM BIOMEDICAL ENGINEERING PROFESSOR Temperature 36.7 ??C (98.1 ??F) 09/01/2024 8:20 AM CS T Respiratory Rate 16 05/24/2022 10:21 AM CDT Oxygen Saturation 98% 09/01/2024 8:20 AM BIOMEDICAL ENGINEERING PROFESSOR Inhaled Oxygen Concentration - - Weight 70.8 kg (156 lb) 10/09/2024 10:14 AM BIOMEDICAL ENGINEERING PROFESSOR Height 167.6 cm (5' 6 ) 10/09/2024 10:14 AM BIOMEDICAL ENGINEERING PROFESSOR Body Mass Index 25.18 10/09/2024 10:14 AM BIOMEDICAL ENGINEERING PROFESSOR Plan of Treatment Health Maintenance Due Date [...] DETECTION WITH GENOTYPING Routine 10/09/2024 11:33 AM BIOMEDICAL ENGINEERING PROFESSOR THINPREP PROCESSING (MOLECULAR COMPONENT) Routine 10/09/2024 11:01 AM BIOMEDICAL ENGINEERING PROFESSOR Screening for malignant neoplasm of cervix PAP WITH REFLEX TO HIGH RISK HPV Routine 10/09/2024 10:27 AM BIOMEDICAL ENGINEERING PROFESSOR Screening for malignant neoplasm of cervix from Last 3 Months Results * High Risk HPV DNA Detection with Genotyping (Molecular component) (10/09/2024 11:33 AM BIOMEDICAL ENGINEERING PROFESSOR) HPV HR 16 Not Detected Not Detected [facility] Comment:Testing performed by : [facility], [address] [place]., [address] HPV HR 18 Not Detected Not Detected [facility] Comment:Testing performed by : [facility], [address] [place]., [address] HPV HR Non 16/18 Not Detected Not [...] this test have been verified by the [facility] Molecular Infectious Disease laboratory. Correlate with separately reported cytology results, as applicable. Interpretive data last revised 23 Testing performed by: [facility], [address] [place]., [address] Endocervical 10/09/2024 11:3 3 AM BIOMEDICAL ENGINEERING PROFESSOR 10/16/2024 4:13 AM BIOMEDICAL ENGINEERING PROFESSOR Flor Stark DO LAB BODY FLUIDS AND STO OLS ORDERABLES Final Result Performing Organization Address City/State/[facility] Co de Phone Number [facility] ZAMAN [address] [place] [address] BJ * ThinPrep processing (Molecular component) (10/09/2024 11:01 AM BIOMEDICAL ENGINEERING PROFESSOR) ThinPrep processing (Molecular component) Specimen received for processing. [facility] Comment:Testing performed by : [facility], [address] [place]., [address] Endocervical 10/09/2024 11:0 1 AM BIOMEDICAL ENGINEERING PROFESSOR 10/12/2024 12:16 PM BIOMEDICAL ENGINEERING PROFESSOR Flor Stark DO LAB BODY FLUIDS AND STO OLS ORDERABLES Final Result Performing Organization Address [facility] Co de Phone Number CRESCENCIO ZAMAN [address] [place] [address] BJ * (ABNORMAL) Pap with reflex to High Risk HPV and Genotyping (Cytology Component) (10/09/2024 10:27 AM BIOMEDICAL ENGINEERING PROFESSOR) Thin prep (Pap test) 10/09/2024 10:27 AM BIOMEDICAL ENGINEERING PROFESSOR 10/09/2024 10:27 AM BIOMEDICAL ENGINEERING PROFESSOR Narrative PATHOLOGY - 10/14/2024 3:39 PM BIOMEDICAL ENGINEERING PROFESSOR [facility] Department of Pathology [address] [place] [address] Final Report with Addendum Note to [...] the details. Patient Name: ??LINSEY DIAZ Address: ??[address] [place] [address], ?? [place], [place] ??[address] Gender: ??F : ??2000 (Age: 24) Service: ?? Location: ?? Hospital #: ??[id number] Patient Type: ??[facility] SPECIMEN Taken: ??10/09/2024 Received: ??10/09/2024 Accessioned:: ??10/12/2024 Reported: ??10/14/2024 Physician(s): Luis Santos D.O. Diagnosis: SOURCE OF SPECIMEN ? Imaged Thinprep Pap Test w/ Reflex HPV - Batch Maker Cytologic Material: STATEMENT OF ADEQUACY ?- Specimen [...] this test have been verified by the [facility] Molecular Infectious Disease laboratory. Correlate with reported cytology results, as applicable. Interpretive data last revised 23 ALLIE Trejo(ASCP)Report Electronically Reviewed and Signed Out By ??ALLIE Trejo(ASCP) ??10/16/2024 10:57:17 ?? Specimen(s) Received: A: Imaged Thinprep Pap Test w/ Reflex HPV - Batch Maker Cytologic Material Clinical History: Last Menstrual Period: [...] determined by the Surgical Pathology Department at [facility] as part of an ongoing quality management coordinator program and in compliance with federally mandated [...] characteristics determined by the Surgical Pathology Department [facility]. ??It has not been cleared or approved by the U. S. Food and Drug Administration. Flor Stark DO LAB CYTOLOGY ORDERABLES Final Result PATHOLOGY [address] [place] [address] from Last 3 Months [place] [address] [place] [address] [place] [address] Care Teams Manager Sharepoint Relationship Specialty Start Date End Date [place] [address] PCP - General Family Medicine 07/31/21
--- OUTSIDE RECORDS SUMMARY | 2024-10-24 09:17 | XMS_ITS | Clinical Summary ---
Author Organization [facility] Address [address] [place] [address] Phone Care Team Providers Care Water Plant Pump Operator Name Role Phone Unavailable Unavailable Unavailable Reason for Visit and Chief Complaint gynecologic annual exam - The Chief Complaint is: Annual-declines std testing Problems Includes: Problems addressed during this encounter and other active Problems All Visits Onset Date Resolved Date Provider Condition S tatus Dysmenorrhea 12/22/2015 OLIVIA OSORIO [facility]- A ctive Last Documented On 6 2:17PM ; [facility] Plan of Treatment - Clinical summary provided to patient - Last Documented On 02/03/2018 3:17PM ; [facility] Instructions to patient Instructions for patient : B reast Self Exam discussed Last Documented On 8 3:00PM ; [facility] Gardasil information given a nd series encouraged Series completed! Last Documented On 8 3:01PM ; [facility] Safe sex counseling Last Documented On 8 3:01PM ; [facility] Education and Decision Aids were provided during visit for: Patient Education: Daily bryant cium and vitamin D Last Documented On 8 3:00PM ; [facility] Patient Education: weight be aring exercise Last Documented On 8 3:00PM ; [facility] Assessments Includes: Assessments from this encounter Findings - NORMAL FEMALE EXAM - Last Documented On 02/03/2018 3:17PM ; [facility] Instructions Includes: Instructions from this encounter Instructions to patient Instructions for patient : B reast Self Exam discussed Last Documented On 8 3:00PM ; [facility] Gardasil information given a nd series encouraged Series completed! Last Documented On 8 3:01PM ; [facility] Safe sex counseling Last Documented On 8 3:01PM ; [facility] Education and Decision Aids were provided during visit for: Patient Education: Daily bryant cium and vitamin D Last Documented On 8 3:00PM ; [facility] Patient Education: weight be aring exercise Last Documented On 8 3:00PM ; [facility] Medical Equipment - Implanted Devices Includes: Current Devices No Medical Equipment Recorded Medications Includes: Medications discussed during this encounter and other current Medications New / Renewed during this visit OLIVIA COVINGTON on 02/03/2018 Aviane 0.1-20MG-MCG Oral Tablet Provider: OLIVIA Boone 90 day supply: 90 tablet, 3 refills Diagnosis: One tablet daily Pharmacy: [facility] ([facility] Pharmacy) [address] Last Documented On 9 11:26AM By OLIVIA COVINGTON ; [facility] Current Medications (continue as prescribed) Aviane 0.1-20MG-MCG Oral Tablet 02/04/2019 Provider: OLIVIA COVINGTON Diagnosis: One tablet daily Last Documented On 9 9:12AM By OLIVIA COVINGTON ; [facility] Medications Administered Includes: Administered Medications from this encounter No Administered Medications Recorded Vital Signs Includes: Vital Signs from this encounter Vital Name 02/03/2018 03:03P Blood Pressure Sitting L 110/62 BP Cuff Size Regular Height (in) 67 Weight (lb) 124 Body Mass Index (kg/m2) 19.4 BMI Percentile (percentile) 20 Body Surface Area (m2) 1.7 Last Documented: On 02/03/2018 3:05PM ; [facility] Results Includes: Results discussed during this encounter No Results Recorded For Specified Dates History of Present Illness Includes: History of Present Illness from this encounter NEWTON DIAZ is a 17 year old female. - Medication list reviewed - PRIMARY CARE PROVIDER : Dr Rowe Social History Description Last Updated In monogamous relationship 02/03/2018 Last Documented On 8 3:17PM ; [facility] Non-smoker 02/03/2018 Last Documented On 8 3:17PM ; [facility] Not using alcohol 02/03/2018 Last Documented On 8 3:17PM ; [facility] Not using drugs 02/03/2018 Last Documented On 8 3:17PM ; [facility] Sexually active with 1 partners in the l ast year 1 lifetime partner 02/03/2018 Last Documented On 8 3:17PM ; [facility] Social history unchanged 02/03/2018 Last Documented On 8 3:17PM ; [facility] Smoking status : Never smoker 02/03/2018 Last Documented On 8 3:17PM ; [facility] Procedures and Surgical History Includes: Procedures from this encounter Procedures Code Diagnosis Performing Provider Service L ocation Service Date low fat diet Last Documented On 8 3:01PM ; [facility] Medical History Includes: Medical History addressed during this encounter Description Last Updated No recent change in medical history 03/2018 Last Documented On 8 3:17PM ; [facility] LMP: 01/16/2018 02/03/2018 Last Documented On 8 3:17PM ; [facility] Sexually active 02/03/2018 Last Documented On 8 3:17PM ; [facility] Contraception: avaine 02/03/2018 Last Documented On 8 3:17PM ; [facility] History of Gardasil 12/31/2016 Last Documented On 8 3:00PM ; [facility] Family History Includes: Family History addressed during this encounter Description Last Updated Family history unchanged 02/04/2019 Last Documented On 8 3:00PM ; [facility] Maternal grandfather's history of family history of heart disease mgf 02/03/2018 Last Documented On 8 3:17PM ; [facility] Paternal history of diabetes mellitus fa ther 02/03/2018 Last Documented On 8 3:17PM ; [facility] Review of Systems Includes: Review [...] Diagnosis ANNUAL WELL WOMEN EXAM OLIVIA OSORIO [facility] ANALYTICAL SCIENTIST 02/04/20 18 3:02PM 3:19PM Normal Female Exam Clinical Notes Includes: Clinical Notes from this encounter No Clinical Notes Recorded
--- OUTSIDE RECORDS SUMMARY | 2024-10-24 09:17 | XMS_ITS | Clinical Summary ---
Author Organization [facility] Address [address] [facility] [address] [place] [address] Phone Care Team Providers Care Big Data Engineer Name Role Phone Unavailable Unavailable Unavailable Reason for Visit and Chief Complaint The Chief Complaint is: 3rd Gardasil 0.5mL admin left deltoid IM, pt tolerated well/dp ~LOT#[id number]-8/27/17 Problems Includes: Problems addressed during this encounter and other active Problems All Visits Onset Date Resolved Date Provider Condition S tatus Dysmenorrhea 12/22/2015 OLIVIA COVINGTON A ctive Last Documented On 6 2:17PM ; [facility] Plan of Treatment Pending Tests Order Diagnosis Results Due Ordering P rovider Injections Gardasil Encounter for immunization 09/25/16 LORETO PALOMO RN [facility] Last Documented On 6 1:10PM ; [facility] Injections Theraputic Injection Encounter for immunization 09/25/16 LORETO PALOMO RN [facility] Last Documented On 6 1:10PM ; [facility] Assessments Includes: Assessments from this encounter No Assessments Recorded Medical Equipment - Implanted Devices Includes: Current Devices No Medical Equipment Recorded Medications Includes: Medications discussed during this encounter and other current Medications Current Medications (continue as prescribed) Aviane 0.1-20MG-MCG Oral Tablet 02/04/2019 Provider: OLIVIA COVINGTON Diagnosis: One tablet daily Last Documented On 9 9:12AM By OLIVIA COVINGTON ; [facility] Medications Administered Includes: Administered Medications from this encounter Medications Administered Diagnosis Date Pro vider Gardasil IM SUSP Encounter for immunization 09/25/2016 LORETO PALOMO RN FRIEDA 3rd Gardasil left deltoid, pt tolerated well/dp Last Documented On 6 1:09PM By CYNDIE OROSCO MA ; [facility] Vital Signs Includes: Vital Signs from this encounter Vital Name 09/25/2016 01:06P Blood Pressure Sitting (mmHg) 104/68 Height (in) 67 Weight (lb) 116 Body Mass Index (kg/m2) 18.2 BMI Percentile (percentile) 10 Body Surface Area (m2) 1.6 Last Documented: On 09/25/2016 1:08PM ; [facility] Results Includes: Results discussed during [...] 02/04/2019 Last Documented On 6 1:06PM ; [facility] LMP: 2016 09/25/2016 Last Documented On 6 1:10PM ; [facility] Family History Includes: Family History [...] Time Check-Out Time Diagnosis INJECTION LORETO MANZANO [facility] [place] 09/25/2016 12:55PM 1:12PM Clinical Notes Includes: Clinical Notes from this encounter No Clinical Notes Recorded
--- OUTSIDE RECORDS SUMMARY | 2024-10-24 09:17 | XMS_ITS | Clinical Summary ---
Author Organization [facility] Address [address] [place] [address] Phone Care Team Providers Care Public Health Teacher Name Role Phone Unavailable Unavailable Unavailable Reason for Visit and Chief Complaint WALK-IN CLINIC SICK VISIT Problems Includes: Problems addressed during this encounter and other active Problems All Visits Onset Date Resolved Date Provider Condition S tatus Dysmenorrhea 12/22/2015 OLIVIA COVINGTON A ctive Last Documented On 6 2:17PM ; [facility] [...] On 9 9:12AM By OLIVIA COVINGTON ; [facility] [...]
[2024-10-24] MEDS: POTASSIUM CHLORIDE 20 MEQ PACKET (FOR LIQUID) 40 MEQ PO (10:22)
[2024-10-24] MEDS: SODIUM CHLORIDE 0.9% IV 1,000 ML 999 ML IV CONT (10:24)
[2024-10-24] MEDS: KETOROLAC 15 MG/ML VIAL (*BKC) IV PUSH (10:25)
[2024-10-24 10:26] VITALS: BP 100/70; PULSE 91; RESP 15; O2SAT 99
[2024-10-24 10:53] LABS: Influenza A QL RT-PCR Negative (Negative); Influenza B QL RT-PCR Negative (Negative); RSV RNA, RT-PCR Negative (Negative); SARS-CoV-2 RNA PCR Negative (Negative)
--- NOTE | 2024-10-24 10:59 | ED.GENADULT ---
HPI - General Adult General Chief complaint: Abdominal Pain Stated complaint: abdominal pain Time Seen by Provider: 10/24/24 09:05 History of Present Illness HPI narrative: This is a 24-year-old female presenting ED chief complaint abdominal pain. Patient had nausea and diarrhea several days ago. Since then she has developed crampy abdominal pain across her abdomen radiating into her back. Pain comes and goes. He has had subjective fevers but has not taken a temperature. She denies chest pain difficulty breathing URI symptoms hematochezia or melena or vaginal discharge or irritation. She denies sick contacts at home. She has not taken anything for pain control. Related Data Allergies Allergy/AdvReac Type Severity Reaction Status Date / Time No Known Allergies Allergy Verified 10/24/24 08:38 [facility] Past Medical History Medical History No active medical problems Surgical History Surgical History Winters teeth removed Family History Family History Mother Depression Father Family history of type 2 diabetes mellitus Hypertension Grandparent History of blood clots Breast cancer Cerebrovascular accident Social History Social History Smoking status: Never smoker Second hand tobacco smoke exposure: No Alcohol intake: current Drinks per week: 5 Substance use: never Exam Narrative: APPEARANCE: No apparent distress. Head: atraumatic. EYES: EOMI, NOSE: Atraumatic NECK: Trachea midline RESPIRATORY: No increased rate of breathing, ctab CARDIOVASCULAR: RRR, no peripheral edema ABDOMINAL: Soft, mild tenderne ss along the right side of the abdomen without guarding rebound, no CVA tenderness MUSCULOSKELETAl: No obvious deformities NEURO: Alert. Moving 4/4 extremities SKIN:: Warm, dry. Normal color PSYCHIATRIC: Normal affect Course Vital Signs Vital signs: Vital Signs Temperature 97.5 F L 10/24/24 08:25 Pulse Rate 82 10/24/24 08:25 Respiratory Rate 16 10/24/24 08:25 Blood Pressure 118/72 10/24/24 08:25 Pulse Oximetry 100 10/24/24 08:25 Oxygen Delivery Room Air 10/24/24 08:25 Temperature 97.5 F L 01/25/25 08:25 Pulse Rate 91 10/24/24 10:26 Respiratory Rate 15 10/24/24 10:26 Blood Pressure 100/70 10/24/24 10:26 Pulse Oximetry 99 10/24/24 10:26 Oxygen Delivery Room Air 10/24/24 08:25 Medical Decision Making MDM Narrative Medical decision making narrative: -Course: 24-year-old female presenting with abdominal pain following episode of nausea vomiting diarrhea. Reported tenderness on exam abdomen although not significantly tender on exam. Laboratory studies within normal limits. CT abdomen pelvis with no acute findings. Patient treated with fluids pain control and antiemetics and is feeling better. She will be discharged follow-up with her primary care physician. Given return precautions -DDX includes but is not limited to: Appendicitis, gallbladder disease, gastroenteritis, colitis, ovarian cyst -Independent interpretation of studies: Labs and imaging reviewed -Shared decision making / Disposition: Discharged -RX Zofran Vital Signs Vital Signs: Vital Signs Temperature 97.5 F L 10/24/24 08:25 Pulse Rate 82 10/24/24 08:25 Respiratory Rate 16 10/24/24 08:25 Blood Pressure 118/72 10/24/24 08:25 Pulse Oximetry 100 10/24/24 08:25 Oxygen Delivery Room Air 10/24/24 08:25 Temperature 97.5 F L 10/24/24 08:25 Pulse Rate 91 10/24/24 10:26 Respiratory Rate 15 10/24/24 10:26 Blood Pressure 100/70 10/24/24 10:26 Pulse Oximetry 99 10/24/24 10:26 Oxygen Delivery Room Air 10/24/24 08:25 Lab Data 10/24/24 08:46 10/24/24 08:46 Labs: Lab Results 10/24/24 10/24/24 10/24/24 Range/Units 08:46 08:52 10:13 WBC 6.3 (4.5-10.0) K/mm3 RBC 4.80 (4.2-5.4) M/mm3 Hgb 12.9 (12.0-15.0) g/dL Hct 40.2 (37.0-47.0) % MCV 83.8 (80-100) fl MCH 26.9 (26-34) pg MCHC 32.1 (32-36) g/dl RDW 15.3 H (11.5-14.5) % Plt Count 245 (150-375) k/mm3 MPV 10.8 H (7.4-10.4) fl Immature Gran % (Auto) 0.2 (0-0.5) % Neut % (Auto) 60.5 (45.5-73.1) % Lymph % (Auto) 31.3 (18.3-44.2) % [place] % (Auto) 6.6 (2.6-8.5) % Eos % (Auto) 0.9 (0-4.4) % Baso % (Auto) 0.5 (0.2-1.2) % Lymph # (Auto) 1.98 (0.9-3.2) K/mm3 [place] # (Auto) 0.4 (0.1-0.6) K/mm3 Eos # (Auto) 0.1 (0-0.3) K/mm3 Baso # (Auto) 0.0 (0.0-0.1) K/mm3 Abs Immat Gran (auto) 0.01 (0.00-0.031) K/mm3 Absolute Neuts (auto) 3.8 (1.3-6.7) K/mm3 Absolute Nucleated RBC 0.000 (0.0-0.012) K/mm3 Nucleated RBC % 0.0 (0.0-0.2) % Sodium 138 (137-145) mmol/L Potassium 3.2 L (3.4-5.0) mmol/L Chloride 102 (98-107) mmol/L Carbon Dioxide 26 (22-30) mmol/L Anion Gap 10 (4-12) mmol/L BUN 6 L (7-17) mg/dL Creatinine 0.58 L (0.7-1.0) mg/dL Estim Creat Clear Calc 121 ml/min Estimated GFR > 60 (59 - ) Glucose 100 (65-110) mg/dL Calcium 9.3 (8.4-10.2) mg/dL Total Bilirubin 0.4 (0.2-1.3) mg/dL AST 27 (14-36) U/L ALT 18 (6-35) U/L Alkaline Phosphatase 92 (38-126) U/L Total Protein 8.0 (6.3-8.2) g/dL Albumin 4.4 (3.5-5.1) g/dL Lipase 63 (23-300) U/L Urine Color Yellow (Yellow) Urine Appearance Clear (Clear) Urine pH 6.0 (5.0-9.0) Ur Specific [place] 1.021 (1.001-1.035) Urine Protein Trace (Negative) mg/dL Urine Glucose (UA) Negative (Negative) mg/dL Urine Ketones Trace H (Negative) mg/dL Ur Blood (Man) Negative (Negative) Urine Nitrate Negative (Negative) Urine Bilirubin Negative (Negative) Urine Urobilinogen 1.0 (<2.0) mg/dL Leukocyte Esterase Rfl Negative (Negative) DANNIE/UL Urine RBC 0-2 (0-2) /hpf Urine WBC 0-5 (0-3) /hpf Ur Squamous Epith Cells None seen (Few) /hpf Urine Bacteria None seen /hpf Urine Casts 0-2 POC Urine HCG, Qual Negative (Negative) Influenza A (RT-PCR) Negative (Negative) Influenza B (RT-PCR) Negative (Negative) RSV (RT-PCR) Negative (Negative) SARS-CoV-2 RNA (RT-PCR) Negative (Negative) Discharge Plan Discharge Clinical Impression: Abdominal pain, Nausea and vomiting Patient Disposition: Home, Self-Care Condition: Stable Instructions: Antibiotic Form, Gastroenteritis (ED), Abdominal Pain (ED) Additional Instructions: Your seen in the emergency department for abdominal pain. Your workup here was reassuring with normal laboratory studies and a normal CT. Please take Zofran for nausea, use Motrin Tylenol for pain control. Return if you develop fevers severe abdominal pain or intractable nausea vomiting. Patient Language: Jamaican Prescriptions: New ondansetron 4 mg tablet,disintegrating 4 mg PO Q8H PRN (Reason: nausea and vomiting) Qty: 30 0RF No Action levonorgestrel-ethinyl estrad [Aviane] 0.1-20 mg-mcg tablet 1 tablet PO DAILY Qty: 84 1RF Follow-up/Referrals: Harms,Raza Carrero M.D. [Primary Care Provider] -
[2024-10-24 11:57] VITALS: BP 118/84; PULSE 74; RESP 16; O2SAT 99
== END 2024-10-24 11:58 | disposition home or self-care (01) ==
PROVIDERS: Emergency Provider Emergency Medicine; PCP Family Medicine
DX: R10.9 Unspecified abdominal pain (principal); R11.2 Nausea with vomiting, unspecified; Z20.822 Contact with and (suspected) exposure to COVID-19
CPT/HCPCS: 36415; 74177; 80053; 81001; 81025; 83690; 85025; 87637; 96361; 96374; 99284; A9270; J1885; J7030; Q9967